=== PATIENT | male | born 1965 | race Hispanic/Latino ===

== ENCOUNTER 2016-09-24 09:07 | Emergency (ER) | payer SELFPAY ==
[~2016-09-24] VITALS: Ht 170.2 cm; Wt 66.6 kg
[~2016-09-24 09:07] MED LIST: AMLODIPINE BESYL5 MG PO; ANTIVERT25 MG PO; APRESOLINE25 MG PO; CARVEDILOL12.5 MG PO; CLONIDINE HCL0.1 MG PO; CLONIDINE HCL0.2 MG PO; GLIPIZIDE10 MG PO; GLIPIZIDE5 MG PO; IRON325 MG PO; LEVEMIR100 UNIT/2 SC; LEVOFLOXACIN500 MG PO; LISINOPRIL2.5 MG PO; LISINOPRIL20 MG PO; LOPRESSOR25 MG PO; METFORMIN HCL500 MG PO; NIFEDIPINE ER30 MG PO; NORCO 5/3251 TABLET PO; NORVASC10 MG PO; NORVASC5 MG PO; TYLENOL WITH C1 EACH PO
[2016-09-24 10:19] LABS: BASOPHIL COUNT 0.1 K/uL (0-0.1); EOSINOPHIL (%) 7.4 % (0-5); EOSINOPHIL COUNT 0.5 K/uL (0-0.3); HEMATOCRIT 33.8 % (38.0-50.0); IMMATURE GRANULOCYTE (%) 0.3 % (0.0-0.7); IMMATURE GRANULOCYTE COUNT 0.2 K/uL; LYMPHOCYTE COUNT 2.1 K/uL (1.0-2.8); MCH 31.1 PG (29.0-34.0); MCHC 36.4 G/DL (30.0-36.0); MEAN PLAT.VOLUME 8.8 uM^3 (9.0-12.4); MONOCYTE (%) 7.2 % (3-12); MONOCYTE COUNT 0.5 K/uL (0-0.8); NEUTROPHIL (%) 52.8 % (45-76); NEUTROPHIL COUNT 3.6 K/uL (1.8-6.4); PLATELET COUNT 249 K/uL (156-360); RBC DIS.WIDTH-CV 13.9 % (11.8-14.6); RBC DIS.WIDTH-SD 42.4 % (39-53); WHITE BLOOD COUNT 6.8 K/uL (4.1-10.2)
[2016-09-24 10:20] LABS: MCV 85.4 FL (86-99); RED BLOOD COUNT 3.96 M/uL (4.00-5.50)
[2016-09-24 10:31] LABS: CHLORIDE 111 mEq/L (99-109); POTASSIUM 4.4 mEq/L (3.7-5.4); SODIUM 138 mEq/L (136-147)
[2016-09-24 10:33] LABS: GLUCOSE 229 mg/dL (70-99)
[2016-09-24 10:35] LABS: ANION GAP 8 MEQ/L (2-14); TOTAL BILIRUBIN 0.2 mg/dL (0.0-1.0)
[2016-09-24 10:37] LABS: ALKALINE PHOSPHATASE 141 IU/L (3-129); GFR ESTIMATE (CALCULATED) 27 mL/min/
[2016-09-24 10:38] LABS: UREA NITROGEN (BUN) 39 mg/dL (9-23)
[2016-09-24 12:42] LABS: ADD MIUA? YES; BILIRUBIN NEGATIVE; BLOOD SMALL; COLOR YELLOW ((YELLOW)); GLUCOSE (STRIP) 250; KETONES NEGATIVE; LEUKOCYTES NEGATIVE; NITRITE NEGATIVE; PROTEIN (STRIP) >=300; SPECIFIC GRAVITY 1.018 (1.000-1.030); UROBILINOGEN 0.2 MG/DL (0.2-1.0)
[2016-09-24 12:56] LABS: EPITHELIAL CELLS 1+; MUCUS RARE
[2016-09-24 12:57] LABS: BACTERIA NONE SEEN; CASTS NONE SEEN /LPF; CRYSTALS NONE SEEN; RED BLOOD CELLS 0-5 /HPF (0-5); UCUL ADDED? NO; WHITE BLOOD CELLS NONE SEEN /HPF (0-5)
[2016-09-24] MEDS ORDERED: FIORICET,ESG1 TABLET PO (12:59)
[2016-09-24 14:01] VITALS: BP 160/74
== END 2016-09-24 14:02 | disposition home or self-care (01) ==
LOC: EME 09:07
PROVIDERS: Emergency Medicine
DX: G44.209 Tension-type headache, unspecified, not intractable (principal); N28.9 Disorder of kidney and ureter, unspecified; E11.65 Type 2 diabetes mellitus with hyperglycemia; I10 Essential (primary) hypertension; E03.9 Hypothyroidism, unspecified; J45.909 Unspecified asthma, uncomplicated; Z79.4 Long term (current) use of insulin
CPT/HCPCS: 70450; 72125; 80053; 81003; 85025; 99281; 99285; J7030

== ENCOUNTER 2016-12-07 16:12 | Emergency (ER) | payer OTHER ==
[~2016-12-07] VITALS: Ht 162.6 cm; Wt 75.0 kg
[~2016-12-07 16:12] MED LIST changes: +FIORICET,ESG1 TABLET PO
[2016-12-07 17:33] LABS: HEMATOCRIT 21.7 % (38.0-50.0); MCH 31.3 PG (29.0-34.0); MCHC 34.6 G/DL (30.0-36.0); MCV 90.4 FL (86-99); MEAN PLAT.VOLUME 8.3 uM^3 (9.0-12.4); PLATELET COUNT 234 K/uL (156-360); RBC DIS.WIDTH-CV 14.6 % (11.8-14.6); RBC DIS.WIDTH-SD 47.8 % (39-53); WHITE BLOOD COUNT 12.9 K/uL (4.1-10.2)
[2016-12-07 17:46] LABS: CHLORIDE 109 mEq/L (99-109); PROTHROMBIN TIME 10.4 (9.2-11.2); PTT 25.1 (25-32); SODIUM 137 mEq/L (136-147)
[2016-12-07 17:48] LABS: GLUCOSE 154 mg/dL (70-99)
[2016-12-07 17:50] LABS: ANION GAP 10 MEQ/L (2-14); TOTAL BILIRUBIN 0.2 mg/dL (0.0-1.0)
[2016-12-07 17:52] LABS: ALKALINE PHOSPHATASE 126 IU/L (3-129); GFR ESTIMATE (CALCULATED) 17 mL/min/
[2016-12-07 17:53] LABS: UREA NITROGEN (BUN) 47 mg/dL (9-23)
[2016-12-07 21:08] VITALS: BP 154/69
== END 2016-12-07 21:20 | disposition short-term general hospital (02) ==
LOC: EME 16:12
PROVIDERS: Physician Assistant
PROC: 2W3MX1Z Immobilization of Left Lower Extremity using Splint (ICD-10-PCS; principal; 2016-12-07)
DX: S82.102A Unspecified fracture of upper end of left tibia, initial encounter for closed fracture (principal); S72.052A Unspecified fracture of head of left femur, initial encounter for closed fracture; W11.XXXA Fall on and from ladder, initial encounter; D64.9 Anemia, unspecified; N28.9 Disorder of kidney and ureter, unspecified; E11.9 Type 2 diabetes mellitus without complications; J45.909 Unspecified asthma, uncomplicated; I10 Essential (primary) hypertension; Z79.84 Long term (current) use of oral hypoglycemic drugs
CPT/HCPCS: 71010; 72070; 72100; 73560; 73590; 73650; 80053; 85027; 85610; 85730; 86850; 86900; 86901; 93005; 99281; 99285; J2270; J2405; J3010; J7030

== ENCOUNTER 2016-12-22 14:58 | Inpatient (IN) | payer OTHER ==
[~2016-12-22] VITALS: Ht 170.2 cm; Wt 71.4 kg
[2016-12-22 15:48] VITALS: BP 155/70
[2016-12-22 16:18] LABS: POINT-OF-CARE METER ID UU13113720
[2016-12-22] MEDS ORDERED: GLUCOTROL10 MG PO (16:19)
[2016-12-22] MEDS ORDERED: ACETAMINOPHEN325 M1 PO (16:25)
[2016-12-22] MEDS ORDERED: ROCALTROL0.25 MCG PO (16:26)
[2016-12-22] MEDS ORDERED: CALCIUM CARBON650 MG PO (16:28)
[2016-12-22] MEDS ORDERED: COLACE100 MG PO (16:31)
[2016-12-22] MEDS ORDERED: GLUCAGON HCL1 MG IM (16:32)
[2016-12-22] MEDS ORDERED: GLUCOSE4 GM PO (16:34)
[2016-12-22] MEDS ORDERED: HEPARIN SO5000 UNIT3 SC (16:35)
[2016-12-22] MEDS ORDERED: APRESOLINE20 MG/ML IM (16:36)
[2016-12-22] MEDS ORDERED: NOVOLOG PE100 UNITS/ SC ×2 (16:37→16:41)
[2016-12-22] MEDS ORDERED: LEVO-T175 MCG PO (16:41)
[2016-12-22] MEDS ORDERED: OXYCODONE HCL10 MG PO (16:44)
[2016-12-22] MEDS ORDERED: ROXICODONE15 MG PO (16:44)
[2016-12-22] MEDS ORDERED: MIRALAX17 GM PO (16:45)
[2016-12-22] MEDS ORDERED: SENNA8.6 MG PO (16:46)
[2016-12-22] MEDS ORDERED: NABI650T PO (16:47)
[2016-12-22] MEDS ORDERED: FLOMAX0.4 MG PO (16:48)
[2016-12-22] MEDS ORDERED: ERGOCALCIF50000 UNIT PO (16:49)
[2016-12-22 21:33] LABS: POINT-OF-CARE METER ID UU14174215
[2016-12-22 23:46] VITALS: BP 182/84
[2016-12-23 00:40] VITALS: BP 181/81
[2016-12-23 05:41] LABS: ALKALINE PHOSPHATASE 280 IU/L (3-129); ANION GAP 6 MEQ/L (2-14); CHLORIDE 100 MEQ/L (99-109); GFR ESTIMATE (CALCULATED) 20 mL/min/; GLUCOSE 123 mg/dL (70-99); SAMPLE HEMOLYSIS CHECK 0; SAMPLE ICTERIC CHECK 0; SAMPLE LIPEMIA CHECK 0; SODIUM 134 MEQ/L (136-147); TOTAL BILIRUBIN 0.3 MG/DL (0.0-1.0); UREA NITROGEN (BUN) 43 mg/dL (9-23)
[2016-12-23 05:44] LABS: HEMATOCRIT 23.9 % (38.0-50.0); MCH 30.3 PG (29.0-34.0); MCHC 33.1 G/DL (30.0-36.0); MCV 91.6 FL (86-99); RBC DIS.WIDTH-CV 12.7 % (11.8-14.6); RBC DIS.WIDTH-SD 42.4 % (39-53); RED BLOOD COUNT 2.61 M/uL (4.00-5.50)
[2016-12-23 05:48] LABS: PLATELET COUNT 565 K/uL (156-360)
[2016-12-23 06:38] VITALS: BP 170/76
[2016-12-23 07:04] LABS: POINT-OF-CARE METER ID UU14174215; POINT-OF-CARE USER ID ENVGAF
[2016-12-23 10:46] LABS: POINT-OF-CARE METER ID UU14174215
[2016-12-23 11:55] LABS: POINT-OF-CARE METER ID UU14174215; POINT-OF-CARE USER ID ENVGAF
[2016-12-23 13:41] LABS: ADD MIUA? YES; BILIRUBIN NEGATIVE; BLOOD NEGATIVE; COLOR YELLOW ((YELLOW)); GLUCOSE (STRIP) 150; KETONES NEGATIVE; LEUKOCYTES NEGATIVE; NITRITE NEGATIVE; PROTEIN (STRIP) 100; UROBILINOGEN 0.2 MG/DL (0.2-1.0)
[2016-12-23 14:08] LABS: BACTERIA NONE SEEN /HPF; EPITHELIAL CELLS NONE SEEN /HPF; MUCUS RARE /LPF; RED BLOOD CELLS 0-5 /HPF (0-5); WHITE BLOOD CELLS NONE SEEN /HPF (0-5)
[2016-12-23 14:16] LABS: UR CREATININE CONCENTRATION 49.6 MG/DL
[2016-12-23 15:10] LABS: ANION GAP 7 MEQ/L (2-14); CHLORIDE 100 MEQ/L (99-109); GFR ESTIMATE (CALCULATED) 22 mL/min/; GLUCOSE 117 mg/dL (70-99); SAMPLE HEMOLYSIS CHECK 0; SAMPLE ICTERIC CHECK 0; SAMPLE LIPEMIA CHECK 0; SODIUM 134 MEQ/L (136-147); UREA NITROGEN (BUN) 40 mg/dL (9-23)
[2016-12-23 15:37] VITALS: BP 167/71
[2016-12-23 16:20] LABS: POINT-OF-CARE METER ID UU13113720
[2016-12-23 21:35] LABS: POINT-OF-CARE METER ID UU13113720
[2016-12-24 05:56] LABS: BASOPHIL COUNT 0.1 K/uL (0-0.1); EOSINOPHIL COUNT 1.2 K/uL (0-0.3); HEMATOCRIT 24.4 % (38.0-50.0); IMMATURE GRANULOCYTE (%) 1.4 % (0.0-0.7); IMMATURE GRANULOCYTE COUNT 0.2 K/uL; LYMPHOCYTE COUNT 2.6 K/uL (1.0-2.8); MCH 30.1 PG (29.0-34.0); MCHC 32.8 G/DL (30.0-36.0); MCV 91.7 FL (86-99); MEAN PLAT.VOLUME 9.1 uM^3 (9.0-12.4); MONOCYTE (%) 9.4 % (3-12); MONOCYTE COUNT 1.2 K/uL (0-0.8); NEUTROPHIL (%) 57.6 % (45-76); PLATELET COUNT 605 K/uL (156-360); RBC DIS.WIDTH-CV 12.8 % (11.8-14.6); RBC DIS.WIDTH-SD 43.2 % (39-53); RED BLOOD COUNT 2.66 M/uL (4.00-5.50); WHITE BLOOD COUNT 12.2 K/uL (4.1-10.2)
[2016-12-24 06:20] LABS: ANION GAP 8 MEQ/L (2-14); CHLORIDE 102 MEQ/L (99-109); GFR ESTIMATE (CALCULATED) 22 mL/min/; GLUCOSE 115 mg/dL (70-99); MAGNESIUM 1.9 mg/dl (1.3-2.7); POTASSIUM 5.2 MEQ/L (3.7-5.4); SAMPLE HEMOLYSIS CHECK 0; SAMPLE ICTERIC CHECK 0; SAMPLE LIPEMIA CHECK 0; SODIUM 135 MEQ/L (136-147); UREA NITROGEN (BUN) 42 mg/dL (9-23); URIC ACID 6.5 mg/dL (3.1-9.2)
[2016-12-24 06:22] VITALS: BP 135/65
[2016-12-24 06:36] LABS: POINT-OF-CARE METER ID UU14174215; POINT-OF-CARE USER ID ENVGAF
[2016-12-24 11:51] LABS: POINT-OF-CARE METER ID UU14174215
[2016-12-24 15:14] VITALS: BP 134/64
[2016-12-24 16:09] LABS: POINT-OF-CARE METER ID UU13113720
[2016-12-24 21:28] LABS: POINT-OF-CARE METER ID UU14174215
[2016-12-25 05:22] VITALS: BP 137/64
[2016-12-25 08:08] LABS: POINT-OF-CARE METER ID UU14174215; POINT-OF-CARE USER ID AHSSSJB31
[2016-12-25 11:38] LABS: POINT-OF-CARE METER ID UU13113720
[2016-12-25 15:06] VITALS: BP 158/73
[2016-12-25 16:08] LABS: HEMATOCRIT 24.2 % (38.0-50.0); MCHC 33.1 G/DL (30.0-36.0); MCV 90.6 FL (86-99); MEAN PLAT.VOLUME 8.4 uM^3 (9.0-12.4); PLATELET COUNT 569 K/uL (156-360); RBC DIS.WIDTH-CV 12.7 % (11.8-14.6); RBC DIS.WIDTH-SD 42.3 % (39-53); RED BLOOD COUNT 2.67 M/uL (4.00-5.50); WHITE BLOOD COUNT 10.8 K/uL (4.1-10.2)
[2016-12-25 16:28] LABS: ANION GAP 7 MEQ/L (2-14); CHLORIDE 103 MEQ/L (99-109); GFR ESTIMATE (CALCULATED) 21 mL/min/; POTASSIUM 5.1 MEQ/L (3.7-5.4); SAMPLE HEMOLYSIS CHECK 0; SAMPLE ICTERIC CHECK 0; SAMPLE LIPEMIA CHECK 0; SODIUM 134 MEQ/L (136-147); UREA NITROGEN (BUN) 39 mg/dL (9-23)
[2016-12-25 16:28] LABS: POINT-OF-CARE METER ID UU13113720
[2016-12-25 16:29] LABS: GLUCOSE 80 mg/dL (70-99)
[2016-12-25 20:41] LABS: ADD MIUA? YES; BILIRUBIN NEGATIVE; BLOOD NEGATIVE; COLOR YELLOW ((YELLOW)); GLUCOSE (STRIP) 50; KETONES NEGATIVE; LEUKOCYTES NEGATIVE; NITRITE NEGATIVE; PROTEIN (STRIP) 100; SPECIFIC GRAVITY 1.011 (1.000-1.030); UROBILINOGEN 0.2 MG/DL (0.2-1.0)
[2016-12-25 20:55] LABS: BACTERIA RARE /HPF; EPITHELIAL CELLS NONE SEEN /HPF; MUCUS TRACE /LPF; RED BLOOD CELLS 0-5 /HPF (0-5); WHITE BLOOD CELLS 0-5 /HPF (0-5)
[2016-12-25 20:59] LABS: POINT-OF-CARE METER ID UU14174215; POINT-OF-CARE USER ID 610211320
[2016-12-26 02:23] LABS: POINT-OF-CARE METER ID UU13113720
[2016-12-26 05:11] VITALS: BP 124/60
[2016-12-26 05:55] LABS: ANION GAP 7 MEQ/L (2-14); CHLORIDE 103 MEQ/L (99-109); GFR ESTIMATE (CALCULATED) 20 mL/min/; POTASSIUM 5.4 MEQ/L (3.7-5.4); SAMPLE HEMOLYSIS CHECK 0; SAMPLE ICTERIC CHECK 0; SAMPLE LIPEMIA CHECK 0; SODIUM 133 MEQ/L (136-147); UREA NITROGEN (BUN) 43 mg/dL (9-23)
[2016-12-26 05:57] LABS: GLUCOSE 129 mg/dL (70-99)
[2016-12-26 07:24] LABS: POINT-OF-CARE METER ID UU14174215; POINT-OF-CARE USER ID AHSSSJB31
[2016-12-26 12:16] LABS: POINT-OF-CARE METER ID UU13113720; POINT-OF-CARE USER ID AHSSSJB31
[2016-12-26 15:52] VITALS: BP 140/67
[2016-12-26 16:29] LABS: POINT-OF-CARE METER ID UU13113720
[2016-12-26 21:08] LABS: POINT-OF-CARE METER ID UU13113720
[2016-12-27 05:55] VITALS: BP 153/67
[2016-12-27 06:53] LABS: POINT-OF-CARE METER ID UU14174215; POINT-OF-CARE USER ID ENVGAF
[2016-12-27 11:05] LABS: POINT-OF-CARE METER ID UU13113720
[2016-12-27 17:07] VITALS: BP 166/73
[2016-12-27 17:17] LABS: POINT-OF-CARE METER ID UU13113720
[2016-12-27 21:12] LABS: POINT-OF-CARE METER ID UU13113720
[2016-12-28 04:56] LABS: CHLORIDE 107 mEq/L (99-109); POTASSIUM 5.1 mEq/L (3.7-5.4); SODIUM 136 mEq/L (136-147)
[2016-12-28 04:59] LABS: ANION GAP 7 MEQ/L (2-14)
[2016-12-28 05:03] LABS: GFR ESTIMATE (CALCULATED) 21 mL/min/; UREA NITROGEN (BUN) 41 mg/dL (9-23)
[2016-12-28 05:07] LABS: GLUCOSE 60 mg/dL (70-99)
[2016-12-28 06:52] VITALS: BP 173/79
[2016-12-28 07:11] LABS: POINT-OF-CARE METER ID UU13113720
[2016-12-28 11:24] LABS: POINT-OF-CARE METER ID UU13113720
[2016-12-28 11:37] VITALS: BP 158/64
[2016-12-28 15:05] VITALS: BP 123/58
[2016-12-28 16:26] LABS: POINT-OF-CARE METER ID UU13113720
[2016-12-28 21:18] LABS: POINT-OF-CARE METER ID UU13113720; POINT-OF-CARE USER ID 610211320
[2016-12-29 05:44] VITALS: BP 166/80
[2016-12-29 06:11] LABS: ANION GAP 8 MEQ/L (2-14); CHLORIDE 104 MEQ/L (99-109); GFR ESTIMATE (CALCULATED) 21 mL/min/; POTASSIUM 5.4 MEQ/L (3.7-5.4); SAMPLE HEMOLYSIS CHECK 0; SAMPLE ICTERIC CHECK 0; SAMPLE LIPEMIA CHECK 0; SODIUM 135 MEQ/L (136-147); UREA NITROGEN (BUN) 40 mg/dL (9-23)
[2016-12-29 06:12] LABS: GLUCOSE 80 mg/dL (70-99)
[2016-12-29 07:28] LABS: POINT-OF-CARE METER ID UU13113720
[2016-12-29 11:31] LABS: POINT-OF-CARE METER ID UU14174215; POINT-OF-CARE USER ID ENVGAF
[2016-12-29 15:03] VITALS: BP 131/62
[2016-12-29 16:50] LABS: POINT-OF-CARE METER ID UU13113720
[2016-12-29 21:32] LABS: POINT-OF-CARE METER ID UU13113720
[2016-12-30 05:25] LABS: IRON 46 MCG/DL (35-150)
[2016-12-30 05:43] VITALS: BP 128/59
[2016-12-30 08:17] LABS: POINT-OF-CARE METER ID UU13113720; POINT-OF-CARE USER ID AHSSSJB31
[2016-12-30 12:21] LABS: POINT-OF-CARE METER ID UU14174215; POINT-OF-CARE USER ID AHSSSJB31
[2016-12-30 15:57] VITALS: BP 137/65
[2016-12-30 16:15] LABS: POINT-OF-CARE METER ID UU13113720; POINT-OF-CARE USER ID AHSSSJB31
[2016-12-30 21:20] LABS: POINT-OF-CARE METER ID UU14174215
[2016-12-31 00:42] VITALS: BP 160/70
[2016-12-31 00:45] LABS: POINT-OF-CARE METER ID UU14174215
[2016-12-31 01:26] LABS: POINT-OF-CARE METER ID UU14174215
[2016-12-31 05:32] VITALS: BP 167/76
[2016-12-31 07:05] LABS: POINT-OF-CARE METER ID UU14174215
[2016-12-31 11:44] LABS: POINT-OF-CARE METER ID UU13113720
[2016-12-31 15:04] VITALS: BP 141/68
[2016-12-31 16:26] LABS: POINT-OF-CARE METER ID UU14174215
[2016-12-31 21:00] LABS: POINT-OF-CARE METER ID UU13113720
[2017-01-01 05:15] VITALS: BP 157/72
[2017-01-01 07:27] LABS: POINT-OF-CARE METER ID UU14174215
[2017-01-01 07:51] LABS: POINT-OF-CARE METER ID UU14174215
[2017-01-01 11:39] LABS: POINT-OF-CARE METER ID UU14174215
[2017-01-01 15:48] VITALS: BP 129/63
[2017-01-01 16:52] LABS: POINT-OF-CARE METER ID UU14174215
[2017-01-01 21:21] LABS: POINT-OF-CARE METER ID UU13113720
[2017-01-02 06:14] LABS: ANION GAP 8 MEQ/L (2-14); CHLORIDE 104 MEQ/L (99-109); GFR ESTIMATE (CALCULATED) 20 mL/min/; GLUCOSE 66 mg/dL (70-99); POTASSIUM 4.7 MEQ/L (3.7-5.4); SAMPLE HEMOLYSIS CHECK 0; SAMPLE ICTERIC CHECK 0; SAMPLE LIPEMIA CHECK 0; SODIUM 135 MEQ/L (136-147); UREA NITROGEN (BUN) 54 mg/dL (9-23)
[2017-01-02 06:18] VITALS: BP 135/64
[2017-01-02 06:51] LABS: POINT-OF-CARE METER ID UU13113720; POINT-OF-CARE USER ID ENVGAF
[2017-01-02 11:58] LABS: POINT-OF-CARE METER ID UU13113720; POINT-OF-CARE USER ID AHSSSJB31
[2017-01-02 15:08] VITALS: BP 143/67
[2017-01-02 16:18] LABS: POINT-OF-CARE METER ID UU14174215
[2017-01-02 21:08] LABS: POINT-OF-CARE METER ID UU14174215
[2017-01-03 05:04] VITALS: BP 160/60
[2017-01-03 06:50] LABS: POINT-OF-CARE METER ID UU13113720; POINT-OF-CARE USER ID ENVGAF
[2017-01-03 07:47] LABS: POINT-OF-CARE METER ID UU13113720; POINT-OF-CARE USER ID ENVGAF
[2017-01-03 17:03] LABS: POINT-OF-CARE METER ID UU13113720
[2017-01-03 17:06] VITALS: BP 158/74
[2017-01-03 21:08] LABS: POINT-OF-CARE METER ID UU13113720
[2017-01-04 04:27] VITALS: BP 116/59
[2017-01-04 07:18] VITALS: BP 136/65
[2017-01-04 07:26] LABS: POINT-OF-CARE METER ID UU13113720
[2017-01-04 10:41] LABS: HEMATOCRIT 28.1 % (38.0-50.0); MCH 30.7 PG (29.0-34.0); MCHC 33.5 G/DL (30.0-36.0); MCV 91.8 FL (86-99); MEAN PLAT.VOLUME 8.7 uM^3 (9.0-12.4); NRBC (%) 0.2 /100 WBC (0-0); PLATELET COUNT 512 K/uL (156-360); RBC DIS.WIDTH-CV 14.2 % (11.8-14.6); RBC DIS.WIDTH-SD 46.4 % (39-53); RED BLOOD COUNT 3.06 M/uL (4.00-5.50); WHITE BLOOD COUNT 10.8 K/uL (4.1-10.2)
[2017-01-04 11:07] LABS: ALKALINE PHOSPHATASE 167 IU/L (3-129); ANION GAP 9 MEQ/L (2-14); CHLORIDE 101 MEQ/L (99-109); GFR ESTIMATE (CALCULATED) 20 mL/min/; GLUCOSE 222 mg/dL (70-99); POTASSIUM 5.2 MEQ/L (3.7-5.4); SAMPLE HEMOLYSIS CHECK 0; SAMPLE ICTERIC CHECK 0; SAMPLE LIPEMIA CHECK 0; SODIUM 132 MEQ/L (136-147); TOTAL BILIRUBIN 0.3 MG/DL (0.0-1.0); UREA NITROGEN (BUN) 58 mg/dL (9-23)
[2017-01-04 11:32] LABS: POINT-OF-CARE METER ID UU13113720
[2017-01-04 15:45] VITALS: BP 138/65
[2017-01-04 16:35] LABS: POINT-OF-CARE METER ID UU13113720
[2017-01-04 21:41] LABS: POINT-OF-CARE METER ID UU13113720; POINT-OF-CARE USER ID 610211320
[2017-01-05 05:37] VITALS: BP 114/54
[2017-01-05 07:07] LABS: POINT-OF-CARE METER ID UU14174215
[2017-01-05 07:37] VITALS: BP 116/56
[2017-01-05 11:06] LABS: POINT-OF-CARE METER ID UU13113720
[2017-01-05] MEDS ORDERED: LOVENOX30 MG/0.3 SC (12:39)
[2017-01-05] MEDS ORDERED: GLUCOTROL10 MG PO (12:39)
[2017-01-05] MEDS ORDERED: FLOMAX0.4 MG PO (12:39)
[2017-01-05] MEDS ORDERED: CARVEDILOL12.5 MG PO (12:39)
[2017-01-05] MEDS ORDERED: Procardia XL,Adalat PO (12:39)
[2017-01-05] MEDS ORDERED: MIRALAX17 GM PO (12:39)
[2017-01-05] MEDS ORDERED: SENNA8.6 MG PO (12:39)
[2017-01-05] MEDS ORDERED: ERGOCALCIF50000 UNIT PO (12:39)
[2017-01-05] MEDS ORDERED: LEVO-T175 MCG PO (12:39)
[2017-01-05] MEDS ORDERED: COLACE100 MG PO (12:39)
[2017-01-05] MEDS ORDERED: ACETAMINOPHEN-1 EAC1 PO (12:39)
[2017-01-05] MEDS ORDERED: ROCALTROL0.25 MCG PO (12:39)
[2017-01-05] MEDS ORDERED: OYSTER SHELL 51 EACH PO (12:39)
[2017-01-05] MEDS ORDERED: SSD25GM TP (12:39)
[2017-01-05 16:05] VITALS: BP 126/60
[2017-01-05 16:26] LABS: POINT-OF-CARE METER ID UU14174215
== END 2017-01-05 18:20 | disposition home health service (06) | DRG 560 ==
LOC: 3WEST 14:58
PROVIDERS: Internal Medicine Nephrology; Physical Medicine & Rehabilitation Pain Medicine
DX: S82.102D Unspecified fracture of upper end of left tibia, subsequent encounter for closed fracture with routine healing (principal); I12.9 Hypertensive chronic kidney disease with stage 1 through stage 4 chronic kidney disease, or unspecified chronic kidney disease; E11.22 Type 2 diabetes mellitus with diabetic chronic kidney disease; N18.4 Chronic kidney disease, stage 4 (severe); Z79.4 Long term (current) use of insulin; E03.9 Hypothyroidism, unspecified; E87.1 Hypo-osmolality and hyponatremia; E87.6 Hypokalemia; G56.21 Lesion of ulnar nerve, right upper limb; G89.18 Other acute postprocedural pain; R50.9 Fever, unspecified; Z98.890 Other specified postprocedural states; S82.142D Displaced bicondylar fracture of left tibia, subsequent encounter for closed fracture with routine healing; W11.XXXD Fall on and from ladder, subsequent encounter; T81.4XXA Infection following a procedure, initial encounter; L03.115 Cellulitis of right lower limb; Z91.19 Patient's noncompliance with other medical treatment and regimen; E11.65 Type 2 diabetes mellitus with hyperglycemia; E87.5 Hyperkalemia; D63.1 Anemia in chronic kidney disease; D62 Acute posthemorrhagic anemia; N17.9 Acute kidney failure, unspecified
CPT/HCPCS: 71010; 80048; 80048 91; 80053; 81003; 82570; 82948; 83540; 83735; 84100; 84156; 84466; 84550; 85025; 85027; 87077; 87086; 87186; 97110 GO; 97530 GP; J0690; J0881; J1644; J1650; J1815; J7050

== ENCOUNTER 2017-08-08 19:58 | Observation (INO) | payer SELFPAY ==
[~2017-08-08] VITALS: Ht 167.6 cm; Wt 63.9 kg
[~2017-08-08 19:58] MED LIST changes: +ACETAMINOPHEN-1 EAC1 PO; +ACETAMINOPHEN325 M1 PO; +APRESOLINE20 MG/ML IM; +CALCIUM CARBON650 MG PO; +COLACE100 MG PO; +ERGOCALCIF50000 UNIT PO; +FIORICET 50-301 EAC1 PO; +FLOMAX0.4 MG PO; +GLUCAGON HCL1 MG IM; +GLUCOSE4 GM PO; +GLUCOTROL10 MG PO; +HEPARIN SO5000 UNIT3 SC; +LABETALOL HCL100 MG PO; +LABETALOL HCL200 MG PO; +LEVO-T175 MCG PO; +LEVOTHYROXINE175 MCG PO; +LOVENOX30 MG/0.3 SC; +MIRALAX17 GM PO; +NABI650T PO; +NOVOLOG PE100 UNITS/ SC; +OXYCODONE HCL10 MG PO; +OYSTER SHELL 51 EACH PO; +PROCARDIA XL90 MG PO; +Procardia XL,Adalat PO; +ROCALTROL0.25 MCG PO; +ROXICODONE15 MG PO; +SENNA8.6 MG PO; +SSD25GM TP; +VALSARTAN160 MG PO; +ZANTAC300 MG PO
[2017-08-08 21:40] LABS: HEMATOCRIT 26.4 % (38.0-50.0); MCH 30.8 PG (29.0-34.0); MCHC 34.8 G/DL (30.0-36.0); MCV 88.3 FL (86-99); MEAN PLAT.VOLUME 8.4 uM^3 (9.0-12.4); PLATELET COUNT 216 K/uL (156-360); RBC DIS.WIDTH-CV 13.6 % (11.8-14.6); RBC DIS.WIDTH-SD 44.3 % (39-53); RED BLOOD COUNT 2.99 M/uL (4.00-5.50); WHITE BLOOD COUNT 8.1 K/uL (4.1-10.2)
[2017-08-08 21:51] LABS: CHLORIDE 95 mEq/L (99-109); POTASSIUM 3.6 mEq/L (3.7-5.4); SODIUM 136 mEq/L (136-147)
[2017-08-08 21:53] LABS: GLUCOSE 289 mg/dL (70-99)
[2017-08-08 21:55] LABS: ANION GAP 9 MEQ/L (2-14); TOTAL BILIRUBIN 0.3 mg/dL (0.0-1.0)
[2017-08-08 21:57] LABS: ALKALINE PHOSPHATASE 148 IU/L (3-129); GFR ESTIMATE (CALCULATED) 22 mL/min/
[2017-08-08 21:57] LABS: INTER. NORMALIZED RATIO 0.9; PROTHROMBIN TIME 10.6 SEC (10.2-12.9)
[2017-08-08 21:58] LABS: UREA NITROGEN (BUN) 17 mg/dL (9-23)
[2017-08-08 21:59] LABS: PTT 28.6 SEC (25-37)
[2017-08-08 22:00] LABS: LIPASE 43 U/L (1.0-51.0)
[2017-08-08 22:06] LABS: TROP-I INTERPRETATION NEGATIVE; TROPONIN-I 0.02 ng/mL (0.0-0.30)
[2017-08-08] MEDS ORDERED: LABETALOL HCL100 MG PO (22:34)
[2017-08-08] MEDS ORDERED: DIOVAN320 MG PO (22:36)
[2017-08-08] MEDS ORDERED: GLIPIZIDE10 MG PO (22:36)
[2017-08-09 01:31] VITALS: BP 152/70
[2017-08-09 01:59] LABS: POINT-OF-CARE METER ID UU13113700
[2017-08-09 03:46] LABS: TROP-I INTERPRETATION NEGATIVE; TROPONIN-I 0.02 ng/mL (0.0-0.30)
[2017-08-09 04:01] LABS: HDL CHOLESTEROL 44 MG/DL (Desirable>=40); LDL CHOLESTEROL 102 mg/dL (Desirable<100); NON-HDL CHOLESTEROL 125 mg/dL (Desirable<160); TOTAL CHOLESTEROL 169 mg/dL (Desirable<200); TRIGLYCERIDES 115 MG/DL (Normal: <150)
[2017-08-09 05:14] LABS: ADD MIUA? YES; BILIRUBIN NEGATIVE; BLOOD NEGATIVE; COLOR YELLOW ((YELLOW)); GLUCOSE (STRIP) >=500; KETONES NEGATIVE; LEUKOCYTES NEGATIVE; NITRITE NEGATIVE; PROTEIN (STRIP) >=500; UROBILINOGEN 0.2 MG/DL (0.2-1.0)
[2017-08-09 05:18] LABS: BACTERIA RARE /HPF; EPITHELIAL CELLS NONE SEEN /HPF; HYALINE CASTS 0-5 /LPF; MUCUS NONE SEEN /LPF; RED BLOOD CELLS 0-5 /HPF (0-5); UCUL ADDED? NO; WHITE BLOOD CELLS 0-5 /HPF (0-5)
[2017-08-09 08:38] VITALS: BP 188/82
[2017-08-09 08:41] LABS: POINT-OF-CARE METER ID UU13113831
[2017-08-09 10:37] LABS: TROP-I INTERPRETATION NEGATIVE; TROPONIN-I 0.03 ng/mL (0.0-0.30)
[2017-08-09 11:52] VITALS: BP 204/88
[2017-08-09 12:51] LABS: POINT-OF-CARE METER ID UU13113831
[2017-08-09 15:57] VITALS: BP 186/84
[2017-08-09 16:24] LABS: POINT-OF-CARE METER ID UU13113700
[2017-08-09 19:02] VITALS: BP 181/73
[2017-08-09 21:31] LABS: POINT-OF-CARE METER ID UU13113700
[2017-08-09 23:22] VITALS: BP 117/56
[2017-08-10 00:37] LABS: POINT-OF-CARE METER ID UU14162513
[2017-08-10 03:26] VITALS: BP 125/64
[2017-08-10 04:35] LABS: HEMATOCRIT 25.1 % (38.0-50.0); MCHC 34.7 G/DL (30.0-36.0); MCV 89.3 FL (86-99); MEAN PLAT.VOLUME 8.9 uM^3 (9.0-12.4); PLATELET COUNT 214 K/uL (156-360); RBC DIS.WIDTH-CV 13.7 % (11.8-14.6); RBC DIS.WIDTH-SD 44.7 % (39-53); RED BLOOD COUNT 2.81 M/uL (4.00-5.50)
[2017-08-10 04:54] LABS: CHLORIDE 98 mEq/L (99-109); POTASSIUM 4.3 mEq/L (3.7-5.4); SODIUM 135 mEq/L (136-147)
[2017-08-10 04:55] LABS: GLUCOSE 281 mg/dL (70-99)
[2017-08-10 04:57] LABS: ANION GAP 10 MEQ/L (2-14)
[2017-08-10 04:59] LABS: GFR ESTIMATE (CALCULATED) 13 mL/min/
[2017-08-10 05:04] LABS: UREA NITROGEN (BUN) 33 mg/dL (9-23)
[2017-08-10 08:00] LABS: POINT-OF-CARE METER ID UU14162513
[2017-08-10 08:42] VITALS: BP 130/70
[2017-08-10] MEDS ORDERED: NIFEDIPINE ER30 MG PO (14:09)
[2017-08-10] MEDS ORDERED: ASPIR-LOW81 MG PO (14:10)
[2017-08-10] MEDS ORDERED: SERTRALINE HCL25 MG PO (14:11)
[2017-08-10] MEDS ORDERED: BUSPAR10 MG PO (14:11)
[2017-08-10 15:16] LABS: POINT-OF-CARE METER ID UU14162513
[2017-08-10 16:00] VITALS: BP 128/68
[2017-08-12 21:41] LABS: POINT-OF-CARE METER ID UU14162513
[2017-08-12 21:52] LABS: POINT-OF-CARE METER ID UU14162513
== END 2017-08-10 17:32 | disposition home or self-care (01) ==
LOC: EME 19:58 → EDOF 23:54 → 5WEST 23:54 → EDOF 23:54 → ENRESERV 08-09 → 5WEST 08-09 01:23 → ENPENDDIS 08-10 → 5WEST 08-10 17:32
PROVIDERS: Emergency Medicine; Internal Medicine; Physician Assistant
PROC: 5A1D70Z Performance of Urinary Filtration, Intermittent, Less than 6 Hours Per Day (ICD-10-PCS; principal; 2017-08-10)
DX: R42 Dizziness and giddiness (principal); E11.22 Type 2 diabetes mellitus with diabetic chronic kidney disease; I12.0 Hypertensive chronic kidney disease with stage 5 chronic kidney disease or end stage renal disease; N18.6 End stage renal disease; Z99.2 Dependence on renal dialysis; D63.1 Anemia in chronic kidney disease; D68.9 Coagulation defect, unspecified; R51 Headache; R68.84 Jaw pain; N25.81 Secondary hyperparathyroidism of renal origin; R53.1 Weakness; G43.909 Migraine, unspecified, not intractable, without status migrainosus; Z60.2 Problems related to living alone; Z79.82 Long term (current) use of aspirin; Z79.84 Long term (current) use of oral hypoglycemic drugs; Z83.3 Family history of diabetes mellitus
CPT/HCPCS: 70450; 71020; 78582; 80048; 80053; 80061; 81003; 82948; 83690; 84439; 84443; 84484; 85027; 85379; 85610; 85730; 93005; 93880; 99281; 99285; A9540; A9567; G0257; G0378; J0360; J1644; J1815

== ENCOUNTER 2017-08-10 18:47 | Emergency (ER) | payer SELFPAY ==
[~2017-08-10] VITALS: Ht 177.8 cm; Wt 63.1 kg
[~2017-08-10 18:47] MED LIST changes: +ASPIR-LOW81 MG PO; +BUSPAR10 MG PO; +DIOVAN320 MG PO; +SERTRALINE HCL25 MG PO
[2017-08-10 19:31] LABS: HEMATOCRIT 27.4 % (38.0-50.0); MCHC 34.3 G/DL (30.0-36.0); MCV 90.4 FL (86-99); PLATELET COUNT 259 K/uL (156-360); RED BLOOD COUNT 3.03 M/uL (4.00-5.50); WHITE BLOOD COUNT 8.9 K/uL (4.1-10.2)
[2017-08-10 19:39] LABS: CHLORIDE 101 mEq/L (99-109); POTASSIUM 4.4 mEq/L (3.7-5.4); SODIUM 138 mEq/L (136-147)
[2017-08-10 19:43] LABS: ANION GAP 7 MEQ/L (2-14); TOTAL BILIRUBIN 0.3 mg/dL (0.0-1.0)
[2017-08-10 19:45] LABS: ALKALINE PHOSPHATASE 129 IU/L (3-129)
[2017-08-10 19:46] LABS: UREA NITROGEN (BUN) 14 mg/dL (9-23)
[2017-08-10 19:48] LABS: GFR ESTIMATE (CALCULATED) 20 mL/min/; GLUCOSE 62 mg/dL (70-99)
[2017-08-10 23:43] LABS: POINT-OF-CARE METER ID UU13113747
[2017-08-11 01:39] VITALS: BP 147/75
== END 2017-08-11 01:41 | disposition home or self-care (01) ==
LOC: EME 18:47
PROVIDERS: Physician Assistant
DX: E11.649 Type 2 diabetes mellitus with hypoglycemia without coma (principal); I95.1 Orthostatic hypotension; I12.0 Hypertensive chronic kidney disease with stage 5 chronic kidney disease or end stage renal disease; N18.6 End stage renal disease; E11.22 Type 2 diabetes mellitus with diabetic chronic kidney disease; Z99.2 Dependence on renal dialysis; J45.909 Unspecified asthma, uncomplicated; D64.9 Anemia, unspecified; Z79.84 Long term (current) use of oral hypoglycemic drugs
CPT/HCPCS: 80053; 81003; 82948; 85027; 99281; 99285

== ENCOUNTER 2017-10-19 09:34 | Day surgery (SDC) | payer SELFPAY ==
[~2017-10-19] VITALS: Ht 170.2 cm; Wt 65.4 kg
[~2017-10-19 09:34] MED LIST changes: +ADALAT CC 30 MG30 MG PO; +ASPIR 8181 M1 PO; +SYNTHROID100 MCG PO; +ZOLOFT25 MG PO
[2017-10-19 10:27] LABS: HEMATOCRIT 31.6 % (38.0-50.0); HEMOGLOBIN 10.7 G/DL (12.5-16.6); MCH 31.2 PG (29.0-34.0); MCHC 33.9 G/DL (30.0-36.0); MCV 92.1 FL (86-99); PLATELET COUNT 289 K/uL (156-360); RBC DIS.WIDTH-CV 15.6 % (11.8-14.6); RBC DIS.WIDTH-SD 51.8 % (39-53); RED BLOOD COUNT 3.43 M/uL (4.00-5.50)
[2017-10-19 10:28] VITALS: BP 178/98
[2017-10-19 10:39] LABS: CHLORIDE 101 mEq/L (99-109); POTASSIUM 4.1 mEq/L (3.7-5.4); SODIUM 137 mEq/L (136-147)
[2017-10-19 10:41] LABS: GLUCOSE 131 mg/dL (70-99)
[2017-10-19 10:45] LABS: GFR ESTIMATE (CALCULATED) 11 mL/min/ (58.99-99999)
[2017-10-19 10:46] LABS: UREA NITROGEN (BUN) 34 mg/dL (9-23)
[2017-10-19] MEDS ORDERED: NORCO 5/3251 TABLET PO (14:29)
[2017-10-19 15:08] VITALS: BP 149/67
== END 2017-10-19 15:40 | disposition home or self-care (01) ==
LOC: SDC 09:34
PROVIDERS: Surgery
PROC: 031B09F Bypass Right Radial Artery to Lower Arm Vein with Autologous Venous Tissue, Open Approach (ICD-10-PCS; principal; 2017-10-19)
DX: I12.0 Hypertensive chronic kidney disease with stage 5 chronic kidney disease or end stage renal disease (principal); E11.22 Type 2 diabetes mellitus with diabetic chronic kidney disease; N18.6 End stage renal disease; Z99.2 Dependence on renal dialysis; E03.9 Hypothyroidism, unspecified; Z79.82 Long term (current) use of aspirin; Z79.84 Long term (current) use of oral hypoglycemic drugs
CPT/HCPCS: 80048; 82948; 85027; 87641; J0360; J0690; J1644; J2250; J2405; J3010

== ENCOUNTER 2018-01-10 08:46 | Emergency (ER) | payer BC ==
[~2018-01-10] VITALS: Ht 172.7 cm; Wt 68.4 kg
[2018-01-10 12:31] LABS: HEMATOCRIT 32.6 % (38.0-50.0); HEMOGLOBIN 10.8 G/DL (12.5-16.6); MCH 30.7 PG (29.0-34.0); MCHC 33.1 G/DL (30.0-36.0); MCV 92.6 FL (86-99); PLATELET COUNT 261 K/uL (156-360); RBC DIS.WIDTH-CV 14.9 % (11.8-14.6); RED BLOOD COUNT 3.52 M/uL (4.00-5.50); WHITE BLOOD COUNT 10.9 K/uL (4.1-10.2)
[2018-01-10 12:49] LABS: ALBUMIN 3.6 g/dL (3.2-4.8); CHLORIDE 101 mEq/L (99-109); POTASSIUM 5.1 mEq/L (3.7-5.4); SODIUM 139 mEq/L (136-147)
[2018-01-10 12:52] LABS: GLUCOSE 98 mg/dL (70-99); TOTAL PROTEIN 7.3 g/dL (6.4-8.3)
[2018-01-10 12:54] LABS: TOTAL BILIRUBIN 0.5 mg/dL (0.0-1.0)
[2018-01-10 12:55] LABS: ALKALINE PHOSPHATASE 98 IU/L (3-129); CREATININE 5.7 mg/dL (0.6-1.3); GFR ESTIMATE (CALCULATED) 11 mL/min/ (58.99-99999)
[2018-01-10 12:56] LABS: UREA NITROGEN (BUN) 25 mg/dL (9-23)
[2018-01-10 12:57] LABS: AST (GOT) 12 IU/L (2-34)
[2018-01-10 12:58] LABS: ALT (GPT) 10 IU/L (3-49)
[2018-01-10] MEDS ORDERED: ZITHROMAX Z-PA250 MG PO (14:41)
[2018-01-10] MEDS ORDERED: VENTOLIN HFA18 GM IH (14:46)
[2018-01-10] MEDS ORDERED: ZOFRAN ODT4 MG PO (16:00)
[2018-01-10 16:10] VITALS: BP 195/9
== END 2018-01-10 16:12 | disposition home or self-care (01) ==
LOC: EME 08:46
PROVIDERS: Nurse Practitioner Family
DX: J06.9 Acute upper respiratory infection, unspecified (principal); J45.909 Unspecified asthma, uncomplicated; E11.9 Type 2 diabetes mellitus without complications; I10 Essential (primary) hypertension; Z79.84 Long term (current) use of oral hypoglycemic drugs; Z79.82 Long term (current) use of aspirin
CPT/HCPCS: 71046; 80053; 85027; 93005; 94640; 99281; 99285

== ENCOUNTER 2018-01-16 08:12 | Outpatient (CLI) | payer BC ==
[~2018-01-16 08:12] MED LIST changes: +VENTOLIN HFA18 GM IH; +ZITHROMAX Z-PA250 MG PO; +ZOFRAN ODT4 MG PO
[2018-01-16] MEDS ORDERED: ANTIVERT25 MG PO (12:38)
== END 2018-01-16 09:25 | disposition home or self-care (01) ==
LOC: AMB 08:12
PROC: 02PYX3Z Removal of Infusion Device from Great Vessel, External Approach (ICD-10-PCS; principal; 2018-01-16)
DX: Z45.2 Encounter for adjustment and management of vascular access device (principal); N19 Unspecified kidney failure

== ENCOUNTER 2018-01-16 09:38 | Emergency (ER) | payer BC ==
[~2018-01-16] VITALS: Ht 172.7 cm; Wt 65.4 kg
[2018-01-16 10:51] LABS: BASOPHIL COUNT 0.1 K/uL (0-0.1); EOSINOPHIL (%) 22.3 % (0-5); EOSINOPHIL COUNT 1.7 K/uL (0-0.3); HEMATOCRIT 32.2 % (38.0-50.0); HEMOGLOBIN 10.7 G/DL (12.5-16.6); IMMATURE GRANULOCYTE (%) 0.3 % (0.0-0.7); LYMPHOCYTE (%) 23.5 % (15-42); LYMPHOCYTE COUNT 1.8 K/uL (1.0-2.8); MCH 30.4 PG (29.0-34.0); MCHC 33.2 G/DL (30.0-36.0); MCV 91.5 FL (86-99); MONOCYTE (%) 7.7 % (3-12); MONOCYTE COUNT 0.6 K/uL (0-0.8); NEUTROPHIL (%) 45.2 % (45-76); NEUTROPHIL COUNT 3.5 K/uL (1.8-6.4); PLATELET COUNT 301 K/uL (156-360); RBC DIS.WIDTH-CV 14.7 % (11.8-14.6); RBC DIS.WIDTH-SD 49.1 % (39-53); RED BLOOD COUNT 3.52 M/uL (4.00-5.50); WHITE BLOOD COUNT 7.7 K/uL (4.1-10.2)
[2018-01-16 11:01] LABS: CHLORIDE 98 mEq/L (99-109); POTASSIUM 5.8 mEq/L (3.7-5.4); SODIUM 138 mEq/L (136-147)
[2018-01-16 11:03] LABS: GLUCOSE 110 mg/dL (70-99)
[2018-01-16 11:07] LABS: GFR ESTIMATE (CALCULATED) 7 mL/min/ (58.99-99999)
[2018-01-16 11:08] LABS: CREATININE 8.5 mg/dL (0.6-1.3); UREA NITROGEN (BUN) 49 mg/dL (9-23)
[2018-01-16] MEDS ORDERED: ANTIVERT25 MG PO (12:38)
[2018-01-16 13:08] VITALS: BP 175/81
== END 2018-01-16 13:22 | disposition home or self-care (01) ==
LOC: EME 09:38
PROVIDERS: Emergency Medicine
DX: R42 Dizziness and giddiness (principal); E11.22 Type 2 diabetes mellitus with diabetic chronic kidney disease; I12.9 Hypertensive chronic kidney disease with stage 1 through stage 4 chronic kidney disease, or unspecified chronic kidney disease; N18.9 Chronic kidney disease, unspecified; Z99.2 Dependence on renal dialysis; J45.909 Unspecified asthma, uncomplicated
CPT/HCPCS: 70450; 80048; 82948; 85025; 93005; 99281; 99285

== ENCOUNTER 2018-02-25 12:04 | Inpatient (IN) | payer BC ==
[2018-02-25] VITALS (9 sets, daily range): BP systolic 92–186; BP diastolic 66–120
[~2018-02-25] VITALS: Ht 165.1 cm; Wt 58.2 kg
[2018-02-25 12:54] LABS: APPEARANCE CLEAR ((CLEAR)); BILIRUBIN NEGATIVE; BLOOD NEGATIVE; COLOR YELLOW ((YELLOW)); GLUCOSE (STRIP) 50; KETONES NEGATIVE; LEUKOCYTES NEGATIVE; NITRITE NEGATIVE; PROTEIN (STRIP) >=500; SPECIFIC GRAVITY 1.014 (1.000-1.030); UROBILINOGEN 0.2 MG/DL (0.2-1.0)
[2018-02-25 12:57] LABS: BASOPHIL (%) 0.3 % (0-1); EOSINOPHIL (%) 0.8 % (0-5); EOSINOPHIL COUNT 0.1 K/uL (0-0.3); HEMATOCRIT 34.6 % (38.0-50.0); HEMOGLOBIN 11.6 G/DL (12.5-16.6); IMMATURE GRANULOCYTE (%) 0.3 % (0.0-0.7); LYMPHOCYTE (%) 4.6 % (15-42); LYMPHOCYTE COUNT 0.6 K/uL (1.0-2.8); MCH 30.9 PG (29.0-34.0); MCHC 33.5 G/DL (30.0-36.0); MONOCYTE (%) 9.5 % (3-12); MONOCYTE COUNT 1.2 K/uL (0-0.8); NEUTROPHIL (%) 84.5 % (45-76); NEUTROPHIL COUNT 10.7 K/uL (1.8-6.4); PLATELET COUNT 322 K/uL (156-360); RBC DIS.WIDTH-CV 15.9 % (11.8-14.6); RBC DIS.WIDTH-SD 53.1 % (39-53); RED BLOOD COUNT 3.76 M/uL (4.00-5.50); WHITE BLOOD COUNT 12.7 K/uL (4.1-10.2)
[2018-02-25 13:02] LABS: COMMENTS - BLOOD GASES +C; DEVICE NC; O2 FLOW 6 L/MIN; SITE LR +A; TOTAL RESP RATE 28 resp/min; pH 7.42 (7.35-7.45)
[2018-02-25 13:03] LABS: METHEMOGLOBIN 0.7 % (0-1.5); PCO2 45 mm Hg (35-45); PO2 75 mm Hg (80-100)
[2018-02-25 13:04] LABS: BASE EXCESS 4.1 mEq/L (-3 to +3); BICARBONATE 29.2 mEq/L (22-26)
[2018-02-25 13:05] LABS: ALBUMIN 3.6 g/dL (3.2-4.8); CHLORIDE 100 mEq/L (99-109); POTASSIUM 5.3 mEq/L (3.7-5.4); SODIUM 138 mEq/L (136-147)
[2018-02-25 13:06] LABS: MAGNESIUM 2.7 mg/dL (1.3-2.7)
[2018-02-25 13:08] LABS: GLUCOSE 68 mg/dL (70-99); TOTAL PROTEIN 7.5 g/dL (6.4-8.3)
[2018-02-25 13:09] LABS: TOTAL BILIRUBIN 0.7 mg/dL (0.0-1.0)
[2018-02-25 13:09] LABS: BACTERIA NONE SEEN /HPF; EPITHELIAL CELLS RARE /HPF; MUCUS TRACE /LPF; UCUL ADDED? NO; WHITE BLOOD CELLS 0-5 /HPF (0-5)
[2018-02-25 13:11] LABS: ALKALINE PHOSPHATASE 85 IU/L (3-129); CREATININE 9.5 mg/dL (0.6-1.3); GFR ESTIMATE (CALCULATED) 6 mL/min/ (58.99-99999)
[2018-02-25 13:12] LABS: UREA NITROGEN (BUN) 49 mg/dL (9-23)
[2018-02-25 13:13] LABS: AST (GOT) 31 IU/L (2-34); PTT 28.5 SEC (25-37)
[2018-02-25 13:14] LABS: ALT (GPT) 16 IU/L (3-49); CREATINE KINASE 625 IU/L (1-294)
[2018-02-25 13:18] LABS: TROP-I INTERPRETATION NEGATIVE; TROPONIN-I 0.03 ng/mL (0.0-0.30)
[2018-02-25 17:11] LABS: BASOPHIL (%) 0.3 % (0-1); EOSINOPHIL (%) 0.3 % (0-5); HEMATOCRIT 32.7 % (38.0-50.0); IMMATURE GRANULOCYTE (%) 0.2 % (0.0-0.7); LYMPHOCYTE (%) 6.9 % (15-42); LYMPHOCYTE COUNT 0.8 K/uL (1.0-2.8); MCH 30.9 PG (29.0-34.0); MCHC 33.6 G/DL (30.0-36.0); MCV 91.9 FL (86-99); MONOCYTE (%) 9.3 % (3-12); NEUTROPHIL COUNT 9.1 K/uL (1.8-6.4); PLATELET COUNT 283 K/uL (156-360); RBC DIS.WIDTH-CV 15.8 % (11.8-14.6); RBC DIS.WIDTH-SD 53.1 % (39-53); RED BLOOD COUNT 3.56 M/uL (4.00-5.50); WHITE BLOOD COUNT 10.9 K/uL (4.1-10.2)
[2018-02-25 17:22] LABS: ALBUMIN 3.3 g/dL (3.2-4.8); CHLORIDE 100 mEq/L (99-109); POTASSIUM 4.6 mEq/L (3.7-5.4); SODIUM 138 mEq/L (136-147)
[2018-02-25 17:24] LABS: TOTAL PROTEIN 6.9 g/dL (6.4-8.3)
[2018-02-25 17:26] LABS: TOTAL BILIRUBIN 0.6 mg/dL (0.0-1.0)
[2018-02-25 17:28] LABS: ALKALINE PHOSPHATASE 74 IU/L (3-129); CREATININE 9.6 mg/dL (0.6-1.3); GFR ESTIMATE (CALCULATED) 6 mL/min/ (58.99-99999)
[2018-02-25 17:29] LABS: AST (GOT) 25 IU/L (2-34); GLUCOSE 108 mg/dL (70-99); UREA NITROGEN (BUN) 50 mg/dL (9-23)
[2018-02-25 17:31] LABS: ALT (GPT) 16 IU/L (3-49)
[2018-02-25 18:19] LABS: THYROTROPIN (TSH) 3.5 MIU/L (0.4-5.5)
[2018-02-25 22:05] LABS: AMPHETAMINE NEGATIVE (500 ng/mL); BARBITURATES NEGATIVE (200 ng/mL); BENZODIAZEPINES NEGATIVE (150 ng/mL); BUPRENORPHINE NEGATIVE (10 ng/mL); COCAINE NEGATIVE (150 ng/mL); METHADONE NEGATIVE (200 ng/mL); METHAMPHETAMINE NEGATIVE (500 ng/mL); OPIATES (MORPHINE) NEGATIVE (100 ng/mL); OXYCODONE NEGATIVE (100 ng/mL); PHENCYCLIDINE NEGATIVE (25 ng/mL); PROPOXYPHENE NEGATIVE (300 ng/mL); THC CANNABINOIDS NEGATIVE (50 ng/mL); TRICYCLIC ANTIDEPRESSANTS NEGATIVE (300 ng/mL)
[2018-02-25 22:48] LABS: CHLORIDE 99 MEQ/L (99-109); CREATININE 9.3 MG/DL (0.6-1.3); GFR ESTIMATE (CALCULATED) 6 mL/min/ (58.99-99999); GLUCOSE 94 mg/dL (70-99); POTASSIUM 4.7 MEQ/L (3.7-5.4); SODIUM 137 MEQ/L (136-147); UREA NITROGEN (BUN) 56 mg/dL (9-23)
[2018-02-26] VITALS (21 sets, daily range): BP systolic 128–163; BP diastolic 55–72
[2018-02-26 05:45] LABS: CHLORIDE 99 MEQ/L (99-109); CREATININE 10.3 MG/DL (0.6-1.3); GFR ESTIMATE (CALCULATED) 6 mL/min/ (58.99-99999); POTASSIUM 4.8 MEQ/L (3.7-5.4); SODIUM 139 MEQ/L (136-147); UREA NITROGEN (BUN) 57 mg/dL (9-23)
[2018-02-26 05:58] LABS: GLUCOSE 44 mg/dL (70-99)
[2018-02-26 11:06] LABS: CHLORIDE 99 MEQ/L (99-109); CREATININE 10.2 MG/DL (0.6-1.3); GFR ESTIMATE (CALCULATED) 6 mL/min/ (58.99-99999); POTASSIUM 4.6 MEQ/L (3.7-5.4); SODIUM 137 MEQ/L (136-147); UREA NITROGEN (BUN) 62 mg/dL (9-23)
[2018-02-26 11:09] LABS: GLUCOSE 30 mg/dL (70-99)
[2018-02-26 12:53] LABS: HEPATITIS B SURFACE ANTIGEN Nonreactive
[2018-02-26 15:49] LABS: VANCOMYCIN, TROUGH 9.8 MCG/ML (10-20)
[2018-02-26 17:14] LABS: ALBUMIN 2.8 G/DL (3.2-4.8); ALKALINE PHOSPHATASE 52 IU/L (3-129); ALT (GPT) 12 IU/L (3-49); AST (GOT) 22 IU/L (2-34); CHLORIDE 99 MEQ/L (99-109); GFR ESTIMATE (CALCULATED) 14 mL/min/ (58.99-99999); POTASSIUM 3.9 MEQ/L (3.7-5.4); SODIUM 136 MEQ/L (136-147); TOTAL BILIRUBIN 0.7 MG/DL (0.0-1.0); TOTAL PROTEIN 5.9 G/DL (6.4-8.3)
[2018-02-26 17:17] LABS: CREATININE 4.7 MG/DL (0.6-1.3); GLUCOSE 124 mg/dL (70-99); UREA NITROGEN (BUN) 25 mg/dL (9-23)
[2018-02-26 17:35] LABS: BASOPHIL (%) 0.5 % (0-1); BASOPHIL COUNT 0.1 K/uL (0-0.1); EOSINOPHIL (%) 3.1 % (0-5); EOSINOPHIL COUNT 0.4 K/uL (0-0.3); HEMATOCRIT 27.1 % (38.0-50.0); IMMATURE GRANULOCYTE (%) 0.4 % (0.0-0.7); LYMPHOCYTE (%) 13.1 % (15-42); LYMPHOCYTE COUNT 1.5 K/uL (1.0-2.8); MCH 29.6 PG (29.0-34.0); MCHC 32.5 G/DL (30.0-36.0); MCV 91.2 FL (86-99); MONOCYTE (%) 10.9 % (3-12); MONOCYTE COUNT 1.2 K/uL (0-0.8); PLATELET COUNT 201 K/uL (156-360); RBC DIS.WIDTH-CV 16.3 % (11.8-14.6); RBC DIS.WIDTH-SD 54.1 % (39-53); RED BLOOD COUNT 2.97 M/uL (4.00-5.50); WHITE BLOOD COUNT 11.2 K/uL (4.1-10.2)
[2018-02-26 17:51] LABS: HEMOGLOBIN 8.8 G/DL (12.5-16.6)
[2018-02-26 22:31] LABS: CHLORIDE 97 MEQ/L (99-109); CREATININE 4.9 MG/DL (0.6-1.3); GFR ESTIMATE (CALCULATED) 13 mL/min/ (58.99-99999); GLUCOSE 182 mg/dL (70-99); SODIUM 133 MEQ/L (136-147); UREA NITROGEN (BUN) 29 mg/dL (9-23)
[2018-02-27] VITALS (20 sets, daily range): BP systolic 131–194; BP diastolic 62–93
[2018-02-27 05:47] LABS: CHLORIDE 95 MEQ/L (99-109); GFR ESTIMATE (CALCULATED) 10 mL/min/ (58.99-99999); POTASSIUM 4.3 MEQ/L (3.7-5.4); SODIUM 130 MEQ/L (136-147); UREA NITROGEN (BUN) 38 mg/dL (9-23)
[2018-02-27 05:48] LABS: CREATININE 6.1 MG/DL (0.6-1.3); GLUCOSE 322 mg/dL (70-99)
[2018-02-27 10:58] LABS: CHLORIDE 94 MEQ/L (99-109); CREATININE 6.3 MG/DL (0.6-1.3); GFR ESTIMATE (CALCULATED) 10 mL/min/ (58.99-99999); GLUCOSE 338 mg/dL (70-99); POTASSIUM 4.3 MEQ/L (3.7-5.4); SODIUM 128 MEQ/L (136-147); UREA NITROGEN (BUN) 41 mg/dL (9-23)
[2018-02-27 15:59] LABS: BASOPHIL (%) 0.7 % (0-1); BASOPHIL COUNT 0.1 K/uL (0-0.1); EOSINOPHIL (%) 7.7 % (0-5); EOSINOPHIL COUNT 0.8 K/uL (0-0.3); HEMATOCRIT 27.9 % (38.0-50.0); HEMOGLOBIN 9.1 G/DL (12.5-16.6); IMMATURE GRANULOCYTE (%) 0.3 % (0.0-0.7); LYMPHOCYTE COUNT 1.5 K/uL (1.0-2.8); MCH 29.7 PG (29.0-34.0); MCHC 32.6 G/DL (30.0-36.0); MCV 91.2 FL (86-99); MONOCYTE COUNT 1.2 K/uL (0-0.8); NEUTROPHIL (%) 66.3 % (45-76); PLATELET COUNT 213 K/uL (156-360); RBC DIS.WIDTH-CV 15.5 % (11.8-14.6); RBC DIS.WIDTH-SD 52.2 % (39-53); RED BLOOD COUNT 3.06 M/uL (4.00-5.50); WHITE BLOOD COUNT 10.6 K/uL (4.1-10.2)
[2018-02-27 16:05] LABS: CHLORIDE 94 MEQ/L (99-109); CREATININE 6.6 MG/DL (0.6-1.3); GFR ESTIMATE (CALCULATED) 9 mL/min/ (58.99-99999); GLUCOSE 213 mg/dL (70-99); POTASSIUM 4.2 MEQ/L (3.7-5.4); SODIUM 129 MEQ/L (136-147); UREA NITROGEN (BUN) 43 mg/dL (9-23)
[2018-02-27 16:45] LABS: ALT (GPT) 15 IU/L (3-49); AST (GOT) 22 IU/L (2-34); CHLORIDE 94 MEQ/L (99-109); CREATININE 6.7 MG/DL (0.6-1.3); GFR ESTIMATE (CALCULATED) 9 mL/min/ (58.99-99999); GLUCOSE 210 mg/dL (70-99); POTASSIUM 4.3 MEQ/L (3.7-5.4); SODIUM 130 MEQ/L (136-147); TOTAL BILIRUBIN 0.6 MG/DL (0.0-1.0); TOTAL PROTEIN 6.1 G/DL (6.4-8.3); UREA NITROGEN (BUN) 44 mg/dL (9-23)
[2018-02-27 16:46] LABS: ALKALINE PHOSPHATASE 94 IU/L (3-129)
[2018-02-27 23:15] LABS: CHLORIDE 95 MEQ/L (99-109); CREATININE 6.9 MG/DL (0.6-1.3); GFR ESTIMATE (CALCULATED) 9 mL/min/ (58.99-99999); GLUCOSE 213 mg/dL (70-99); POTASSIUM 4.3 MEQ/L (3.7-5.4); SODIUM 130 MEQ/L (136-147); UREA NITROGEN (BUN) 47 mg/dL (9-23)
[2018-02-28] VITALS (23 sets, daily range): BP systolic 121–187; BP diastolic 56–85
[2018-02-28 13:53] LABS: BASOPHIL (%) 0.8 % (0-1); BASOPHIL COUNT 0.1 K/uL (0-0.1); EOSINOPHIL (%) 13.1 % (0-5); EOSINOPHIL COUNT 1.2 K/uL (0-0.3); HEMATOCRIT 25.9 % (38.0-50.0); HEMOGLOBIN 8.6 G/DL (12.5-16.6); IMMATURE GRANULOCYTE (%) 0.4 % (0.0-0.7); LYMPHOCYTE (%) 16.5 % (15-42); LYMPHOCYTE COUNT 1.5 K/uL (1.0-2.8); MCH 30.4 PG (29.0-34.0); MCHC 33.2 G/DL (30.0-36.0); MCV 91.5 FL (86-99); MONOCYTE (%) 9.2 % (3-12); MONOCYTE COUNT 0.9 K/uL (0-0.8); NEUTROPHIL COUNT 5.6 K/uL (1.8-6.4); PLATELET COUNT 254 K/uL (156-360); RBC DIS.WIDTH-CV 15.3 % (11.8-14.6); RBC DIS.WIDTH-SD 51.6 % (39-53); RED BLOOD COUNT 2.83 M/uL (4.00-5.50); WHITE BLOOD COUNT 9.2 K/uL (4.1-10.2)
[2018-02-28 14:27] LABS: ALBUMIN 2.9 G/DL (3.2-4.8); ALT (GPT) 16 IU/L (3-49); AST (GOT) 18 IU/L (2-34); CHLORIDE 98 MEQ/L (99-109); CREATININE 7.8 MG/DL (0.6-1.3); GFR ESTIMATE (CALCULATED) 8 mL/min/ (58.99-99999); GLUCOSE 189 mg/dL (70-99); POTASSIUM 4.1 MEQ/L (3.7-5.4); SODIUM 135 MEQ/L (136-147); TOTAL BILIRUBIN 0.5 MG/DL (0.0-1.0); TOTAL PROTEIN 6.3 G/DL (6.4-8.3); UREA NITROGEN (BUN) 54 mg/dL (9-23)
[2018-02-28 14:29] LABS: ALKALINE PHOSPHATASE 121 IU/L (3-129)
[2018-02-28 16:41] LABS: HSV-2 IgG Antibody <0.90 Index (<0.90)
[2018-03-01] VITALS (21 sets, daily range): BP systolic 123–172; BP diastolic 55–76
[2018-03-01 07:25] LABS: HEMATOCRIT 26.6 % (38.0-50.0); HEMOGLOBIN 8.7 G/DL (12.5-16.6); MCHC 32.7 G/DL (30.0-36.0); MCV 91.7 FL (86-99); PLATELET COUNT 274 K/uL (156-360); RBC DIS.WIDTH-CV 15.3 % (11.8-14.6); RBC DIS.WIDTH-SD 51.9 % (39-53); WHITE BLOOD COUNT 7.4 K/uL (4.1-10.2)
[2018-03-01 07:57] LABS: ALBUMIN 2.7 G/DL (3.2-4.8); ALKALINE PHOSPHATASE 105 IU/L (3-129); ALT (GPT) 16 IU/L (3-49); AST (GOT) 19 IU/L (2-34); CHLORIDE 99 MEQ/L (99-109); GFR ESTIMATE (CALCULATED) 11 mL/min/ (58.99-99999); GLUCOSE 206 mg/dL (70-99); POTASSIUM 4.3 MEQ/L (3.7-5.4); SODIUM 138 MEQ/L (136-147); TOTAL BILIRUBIN 0.5 MG/DL (0.0-1.0); TOTAL PROTEIN 5.8 G/DL (6.4-8.3); UREA NITROGEN (BUN) 31 mg/dL (9-23)
[2018-03-01 07:58] LABS: CREATININE 5.8 MG/DL (0.6-1.3)
[2018-03-01 13:10] LABS: Insulin Like Growth Factor-1 109 ng/mL (50-317); Z-SCORE (MALE) -0.5 SD (-2.0 - +2.0)
[2018-03-01 16:43] LABS: BASOPHIL (%) 0.8 % (0-1); BASOPHIL COUNT 0.1 K/uL (0-0.1); EOSINOPHIL (%) 15.7 % (0-5); EOSINOPHIL COUNT 1.5 K/uL (0-0.3); HEMATOCRIT 26.6 % (38.0-50.0); HEMOGLOBIN 8.6 G/DL (12.5-16.6); IMMATURE GRANULOCYTE (%) 0.4 % (0.0-0.7); LYMPHOCYTE (%) 18.8 % (15-42); LYMPHOCYTE COUNT 1.8 K/uL (1.0-2.8); MCH 30.1 PG (29.0-34.0); MCHC 32.3 G/DL (30.0-36.0); MONOCYTE (%) 10.7 % (3-12); NEUTROPHIL (%) 53.6 % (45-76); NEUTROPHIL COUNT 5.2 K/uL (1.8-6.4); PLATELET COUNT 297 K/uL (156-360); RBC DIS.WIDTH-CV 15.3 % (11.8-14.6); RBC DIS.WIDTH-SD 52.7 % (39-53); RED BLOOD COUNT 2.86 M/uL (4.00-5.50); WHITE BLOOD COUNT 9.7 K/uL (4.1-10.2)
[2018-03-01 17:18] LABS: ALBUMIN 3.1 G/DL (3.2-4.8); ALKALINE PHOSPHATASE 109 IU/L (3-129); ALT (GPT) 15 IU/L (3-49); AST (GOT) 18 IU/L (2-34); CHLORIDE 99 MEQ/L (99-109); CREATININE 6.4 MG/DL (0.6-1.3); GFR ESTIMATE (CALCULATED) 10 mL/min/ (58.99-99999); GLUCOSE 146 mg/dL (70-99); POTASSIUM 3.8 MEQ/L (3.7-5.4); SODIUM 140 MEQ/L (136-147); TOTAL BILIRUBIN 0.5 MG/DL (0.0-1.0); TOTAL PROTEIN 6.7 G/DL (6.4-8.3); UREA NITROGEN (BUN) 39 mg/dL (9-23)
[2018-03-02] VITALS (24 sets, daily range): BP systolic 124–171; BP diastolic 46–77
[2018-03-02 05:34] LABS: BASOPHIL (%) 0.6 % (0-1); BASOPHIL COUNT 0.1 K/uL (0-0.1); EOSINOPHIL (%) 17.4 % (0-5); EOSINOPHIL COUNT 1.8 K/uL (0-0.3); HEMATOCRIT 26.3 % (38.0-50.0); HEMOGLOBIN 8.4 G/DL (12.5-16.6); IMMATURE GRANULOCYTE (%) 0.5 % (0.0-0.7); LYMPHOCYTE (%) 14.7 % (15-42); LYMPHOCYTE COUNT 1.6 K/uL (1.0-2.8); MCH 29.8 PG (29.0-34.0); MCHC 31.9 G/DL (30.0-36.0); MCV 93.3 FL (86-99); MONOCYTE (%) 10.9 % (3-12); MONOCYTE COUNT 1.2 K/uL (0-0.8); NEUTROPHIL (%) 55.9 % (45-76); NEUTROPHIL COUNT 5.9 K/uL (1.8-6.4); PLATELET COUNT 289 K/uL (156-360); RBC DIS.WIDTH-CV 15.1 % (11.8-14.6); RBC DIS.WIDTH-SD 52.2 % (39-53); RED BLOOD COUNT 2.82 M/uL (4.00-5.50); WHITE BLOOD COUNT 10.6 K/uL (4.1-10.2)
[2018-03-02 06:06] LABS: ALBUMIN 2.6 G/DL (3.2-4.8); CHLORIDE 99 MEQ/L (99-109); GFR ESTIMATE (CALCULATED) 9 mL/min/ (58.99-99999); GLUCOSE 195 mg/dL (70-99); PHOSPHORUS 3.6 mg/dL (2.5-4.9); POTASSIUM 4.2 MEQ/L (3.7-5.4); SODIUM 139 MEQ/L (136-147); UREA NITROGEN (BUN) 44 mg/dL (9-23)
[2018-03-03] VITALS (24 sets, daily range): BP systolic 111–186; BP diastolic 58–108
[2018-03-03 05:43] LABS: BASOPHIL (%) 0.7 % (0-1); BASOPHIL COUNT 0.1 K/uL (0-0.1); EOSINOPHIL (%) 17.3 % (0-5); EOSINOPHIL COUNT 2.1 K/uL (0-0.3); HEMATOCRIT 26.4 % (38.0-50.0); HEMOGLOBIN 8.5 G/DL (12.5-16.6); IMMATURE GRANULOCYTE (%) 0.9 % (0.0-0.7); LYMPHOCYTE COUNT 1.5 K/uL (1.0-2.8); MCH 30.1 PG (29.0-34.0); MCHC 32.2 G/DL (30.0-36.0); MCV 93.6 FL (86-99); MONOCYTE (%) 9.7 % (3-12); MONOCYTE COUNT 1.2 K/uL (0-0.8); NEUTROPHIL (%) 59.4 % (45-76); NEUTROPHIL COUNT 7.2 K/uL (1.8-6.4); PLATELET COUNT 289 K/uL (156-360); RBC DIS.WIDTH-SD 51.5 % (39-53); RED BLOOD COUNT 2.82 M/uL (4.00-5.50)
[2018-03-03 06:34] LABS: CHLORIDE 98 MEQ/L (99-109); CREATININE 5.2 MG/DL (0.6-1.3); GFR ESTIMATE (CALCULATED) 12 mL/min/ (58.99-99999); GLUCOSE 219 mg/dL (70-99); MAGNESIUM 2.5 mg/dl (1.3-2.7); PHOSPHORUS 3.5 mg/dL (2.5-4.9); POTASSIUM 4.5 MEQ/L (3.7-5.4); SODIUM 138 MEQ/L (136-147); UREA NITROGEN (BUN) 28 mg/dL (9-23)
[2018-03-04] VITALS (24 sets, daily range): BP systolic 119–175; BP diastolic 50–97
[2018-03-04 06:14] LABS: BASOPHIL (%) 0.6 % (0-1); BASOPHIL COUNT 0.1 K/uL (0-0.1); EOSINOPHIL (%) 19.8 % (0-5); EOSINOPHIL COUNT 2.4 K/uL (0-0.3); HEMATOCRIT 27.1 % (38.0-50.0); HEMOGLOBIN 8.7 G/DL (12.5-16.6); IMMATURE GRANULOCYTE (%) 0.9 % (0.0-0.7); LYMPHOCYTE (%) 12.4 % (15-42); LYMPHOCYTE COUNT 1.5 K/uL (1.0-2.8); MCH 30.1 PG (29.0-34.0); MCHC 32.1 G/DL (30.0-36.0); MCV 93.8 FL (86-99); MONOCYTE (%) 8.9 % (3-12); MONOCYTE COUNT 1.1 K/uL (0-0.8); NEUTROPHIL (%) 57.4 % (45-76); PLATELET COUNT 345 K/uL (156-360); RBC DIS.WIDTH-CV 14.9 % (11.8-14.6); RBC DIS.WIDTH-SD 50.8 % (39-53); RED BLOOD COUNT 2.89 M/uL (4.00-5.50); WHITE BLOOD COUNT 12.2 K/uL (4.1-10.2)
[2018-03-04 06:43] LABS: CHLORIDE 97 MEQ/L (99-109); GLUCOSE 276 mg/dL (70-99); POTASSIUM 4.3 MEQ/L (3.7-5.4); SODIUM 138 MEQ/L (136-147)
[2018-03-04 06:44] LABS: CREATININE 7.9 MG/DL (0.6-1.3); GFR ESTIMATE (CALCULATED) 8 mL/min/ (58.99-99999); MAGNESIUM 2.9 mg/dl (1.3-2.7); UREA NITROGEN (BUN) 51 mg/dL (9-23)
[2018-03-04 11:29] LABS: COMMENTS - BLOOD GASES A+C+; DEVICE 840 PB; FI02 30 %; MECHANICAL RATE 16 resp/min; MODE AC; SITE LR; TOTAL RESP RATE 16 resp/min
[2018-03-04 11:30] LABS: BASE EXCESS 7.7 mEq/L (-3 to +3); BICARBONATE 30.9 mEq/L (22-26); CARBOXY HGB 1.4 % (0-5); METHEMOGLOBIN 1.3 % (0-1.5); O2 SATURATION (CALCULATED) 96.2 % (95-99); PCO2 37 mm Hg (35-45); PEEP 5 CM/H20; PO2 133 mm Hg (80-100); TIDAL VOLUME 500 ML; pH 7.53 (7.35-7.45)
[2018-03-05] VITALS (25 sets, daily range): BP systolic 92–183; BP diastolic 56–84
[2018-03-05 05:34] LABS: BASOPHIL (%) 0.6 % (0-1); BASOPHIL COUNT 0.1 K/uL (0-0.1); EOSINOPHIL (%) 18.6 % (0-5); EOSINOPHIL COUNT 2.2 K/uL (0-0.3); HEMATOCRIT 26.7 % (38.0-50.0); HEMOGLOBIN 8.8 G/DL (12.5-16.6); IMMATURE GRANULOCYTE (%) 0.7 % (0.0-0.7); LYMPHOCYTE (%) 16.5 % (15-42); LYMPHOCYTE COUNT 1.9 K/uL (1.0-2.8); MCH 30.1 PG (29.0-34.0); MCV 91.4 FL (86-99); MONOCYTE (%) 8.6 % (3-12); NEUTROPHIL COUNT 6.4 K/uL (1.8-6.4); PLATELET COUNT 405 K/uL (156-360); RBC DIS.WIDTH-CV 14.9 % (11.8-14.6); RED BLOOD COUNT 2.92 M/uL (4.00-5.50); WHITE BLOOD COUNT 11.6 K/uL (4.1-10.2)
[2018-03-05 06:03] LABS: CHLORIDE 98 MEQ/L (99-109); CREATININE 9.9 MG/DL (0.6-1.3); GFR ESTIMATE (CALCULATED) 6 mL/min/ (58.99-99999); GLUCOSE 247 mg/dL (70-99); MAGNESIUM 3.2 mg/dl (1.3-2.7); PHOSPHORUS 5.2 mg/dL (2.5-4.9); POTASSIUM 4.2 MEQ/L (3.7-5.4); SODIUM 142 MEQ/L (136-147); UREA NITROGEN (BUN) 66 mg/dL (9-23)
[2018-03-06] VITALS (19 sets, daily range): BP systolic 111–157; BP diastolic 57–86
[2018-03-06 05:21] LABS: BASOPHIL (%) 0.5 % (0-1); BASOPHIL COUNT 0.1 K/uL (0-0.1); EOSINOPHIL (%) 16.4 % (0-5); HEMATOCRIT 27.3 % (38.0-50.0); HEMOGLOBIN 8.9 G/DL (12.5-16.6); IMMATURE GRANULOCYTE (%) 0.9 % (0.0-0.7); LYMPHOCYTE (%) 20.2 % (15-42); LYMPHOCYTE COUNT 2.4 K/uL (1.0-2.8); MCH 29.6 PG (29.0-34.0); MCHC 32.6 G/DL (30.0-36.0); MCV 90.7 FL (86-99); MONOCYTE (%) 8.1 % (3-12); NEUTROPHIL (%) 53.9 % (45-76); NEUTROPHIL COUNT 6.4 K/uL (1.8-6.4); PLATELET COUNT 475 K/uL (156-360); RBC DIS.WIDTH-CV 14.8 % (11.8-14.6); RBC DIS.WIDTH-SD 49.6 % (39-53); RED BLOOD COUNT 3.01 M/uL (4.00-5.50)
[2018-03-06 05:55] LABS: CHLORIDE 98 MEQ/L (99-109); GLUCOSE 209 mg/dL (70-99); SODIUM 140 MEQ/L (136-147); UREA NITROGEN (BUN) 44 mg/dL (9-23)
[2018-03-06 06:14] LABS: CREATININE 7.2 MG/DL (0.6-1.3); GFR ESTIMATE (CALCULATED) 9 mL/min/ (58.99-99999); MAGNESIUM 2.6 mg/dl (1.3-2.7); PHOSPHORUS 2.4 mg/dL (2.5-4.9)
[2018-03-07] VITALS (23 sets, daily range): BP systolic 105–167; BP diastolic 52–81
[2018-03-07 05:28] LABS: BASOPHIL (%) 0.7 % (0-1); BASOPHIL COUNT 0.1 K/uL (0-0.1); EOSINOPHIL (%) 14.5 % (0-5); EOSINOPHIL COUNT 1.8 K/uL (0-0.3); HEMATOCRIT 28.8 % (38.0-50.0); HEMOGLOBIN 9.4 G/DL (12.5-16.6); IMMATURE GRANULOCYTE (%) 0.7 % (0.0-0.7); LYMPHOCYTE (%) 19.9 % (15-42); LYMPHOCYTE COUNT 2.4 K/uL (1.0-2.8); MCH 29.6 PG (29.0-34.0); MCHC 32.6 G/DL (30.0-36.0); MCV 90.6 FL (86-99); MONOCYTE (%) 7.1 % (3-12); MONOCYTE COUNT 0.9 K/uL (0-0.8); NEUTROPHIL (%) 57.1 % (45-76); NEUTROPHIL COUNT 6.9 K/uL (1.8-6.4); PLATELET COUNT 477 K/uL (156-360); RBC DIS.WIDTH-CV 14.7 % (11.8-14.6); RED BLOOD COUNT 3.18 M/uL (4.00-5.50); WHITE BLOOD COUNT 12.1 K/uL (4.1-10.2)
[2018-03-07 06:19] LABS: CHLORIDE 94 MEQ/L (99-109); GLUCOSE 220 mg/dL (70-99); PHOSPHORUS 2.8 mg/dL (2.5-4.9); POTASSIUM 3.8 MEQ/L (3.7-5.4); SODIUM 139 MEQ/L (136-147)
[2018-03-07 06:22] LABS: CREATININE 9.8 MG/DL (0.6-1.3); GFR ESTIMATE (CALCULATED) 6 mL/min/ (58.99-99999); UREA NITROGEN (BUN) 68 mg/dL (9-23)
[2018-03-08] VITALS (17 sets, daily range): BP systolic 123–168; BP diastolic 59–83
[2018-03-09] VITALS (20 sets, daily range): BP systolic 90–169; BP diastolic 59–87
[2018-03-09 00:20] LABS: C DIFF TOXIN NEGATIVE (NEGATIVE)
[2018-03-09 05:32] LABS: HEMATOCRIT 28.5 % (38.0-50.0); HEMOGLOBIN 9.3 G/DL (12.5-16.6); MCH 29.8 PG (29.0-34.0); MCHC 32.6 G/DL (30.0-36.0); MCV 91.3 FL (86-99); PLATELET COUNT 565 K/uL (156-360); RBC DIS.WIDTH-CV 14.6 % (11.8-14.6); RBC DIS.WIDTH-SD 49.1 % (39-53); RED BLOOD COUNT 3.12 M/uL (4.00-5.50); WHITE BLOOD COUNT 14.8 K/uL (4.1-10.2)
[2018-03-09 05:56] LABS: ALBUMIN 3.4 G/DL (3.2-4.8); CHLORIDE 99 MEQ/L (99-109); CREATININE 9.2 MG/DL (0.6-1.3); GFR ESTIMATE (CALCULATED) 6 mL/min/ (58.99-99999); GLUCOSE 144 mg/dL (70-99); POTASSIUM 3.9 MEQ/L (3.7-5.4); SODIUM 142 MEQ/L (136-147); UREA NITROGEN (BUN) 69 mg/dL (9-23)
[2018-03-09 07:17] LABS: BASOPHIL (%) 0.9 % (0-1); BASOPHIL COUNT 0.1 K/uL (0-0.1); EOSINOPHIL (%) 15.8 % (0-5); EOSINOPHIL COUNT 2.4 K/uL (0-0.3); IMMATURE GRANULOCYTE (%) 0.7 % (0.0-0.7); LYMPHOCYTE (%) 15.7 % (15-42); LYMPHOCYTE COUNT 2.4 K/uL (1.0-2.8); MONOCYTE (%) 7.9 % (3-12); MONOCYTE COUNT 1.2 K/uL (0-0.8); NEUTROPHIL COUNT 8.8 K/uL (1.8-6.4)
[2018-03-09 07:30] LABS: ALKALINE PHOSPHATASE 165 IU/L (3-129); ALT (GPT) 19 IU/L (3-49); AST (GOT) 28 IU/L (2-34); MAGNESIUM 2.9 mg/dl (1.3-2.7); TOTAL BILIRUBIN 0.4 MG/DL (0.0-1.0); TOTAL PROTEIN 7.2 G/DL (6.4-8.3)
[2018-03-10] VITALS (20 sets, daily range): BP systolic 113–158; BP diastolic 57–79
[2018-03-11] VITALS (18 sets, daily range): BP systolic 117–166; BP diastolic 58–85
[2018-03-11 06:02] LABS: COMMENTS - BLOOD GASES C+; DEVICE VENT; FI02 30 %; MECHANICAL RATE 16 resp/min; MODE AC; PCO2 33 mm Hg (35-45); PEEP 5 CM/H20; PO2 130 mm Hg (80-100); SITE LB; TIDAL VOLUME 500 ML; TOTAL RESP RATE 16 resp/min; pH 7.54 (7.35-7.45)
[2018-03-11 06:03] LABS: BASE EXCESS 5.5 mEq/L (-3 to +3); BICARBONATE 28.2 mEq/L (22-26); CARBOXY HGB 1.6 % (0-5); METHEMOGLOBIN 0.7 % (0-1.5)
[2018-03-12] VITALS (17 sets, daily range): BP systolic 113–1303; BP diastolic 57–79
[2018-03-12 10:26] LABS: BASOPHIL COUNT 0.1 K/uL (0-0.1); EOSINOPHIL (%) 17.9 % (0-5); EOSINOPHIL COUNT 2.2 K/uL (0-0.3); HEMOGLOBIN 9.1 G/DL (12.5-16.6); IMMATURE GRANULOCYTE (%) 0.5 % (0.0-0.7); LYMPHOCYTE (%) 15.3 % (15-42); LYMPHOCYTE COUNT 1.9 K/uL (1.0-2.8); MCH 30.3 PG (29.0-34.0); MCHC 33.7 G/DL (30.0-36.0); MONOCYTE (%) 8.4 % (3-12); NEUTROPHIL (%) 56.9 % (45-76); PLATELET COUNT 534 K/uL (156-360); RBC DIS.WIDTH-CV 14.8 % (11.8-14.6); RBC DIS.WIDTH-SD 48.4 % (39-53); WHITE BLOOD COUNT 12.3 K/uL (4.1-10.2)
[2018-03-12 10:55] LABS: ALBUMIN 3.3 G/DL (3.2-4.8); CHLORIDE 96 MEQ/L (99-109); GLUCOSE 209 mg/dL (70-99); POTASSIUM 4.1 MEQ/L (3.7-5.4); SODIUM 139 MEQ/L (136-147)
[2018-03-12 10:59] LABS: CREATININE 11.9 MG/DL (0.6-1.3); GFR ESTIMATE (CALCULATED) 5 mL/min/ (58.99-99999); PHOSPHORUS 8.1 mg/dL (2.5-4.9)
[2018-03-12 11:03] LABS: UREA NITROGEN (BUN) 108 mg/dL (9-23)
[2018-03-13] VITALS (15 sets, daily range): BP systolic 133–163; BP diastolic 64–86
[2018-03-14] VITALS (10 sets, daily range): BP systolic 124–165; BP diastolic 64–78
[2018-03-14 05:35] LABS: ALBUMIN 3.2 G/DL (3.2-4.8); CHLORIDE 95 MEQ/L (99-109); GFR ESTIMATE (CALCULATED) 6 mL/min/ (58.99-99999); GLUCOSE 170 mg/dL (70-99); PHOSPHORUS 6.6 mg/dL (2.5-4.9); POTASSIUM 4.5 MEQ/L (3.7-5.4); SODIUM 138 MEQ/L (136-147); UREA NITROGEN (BUN) 83 mg/dL (9-23)
[2018-03-14 05:37] LABS: CREATININE 9.8 MG/DL (0.6-1.3)
[2018-03-15] VITALS (15 sets, daily range): BP systolic 73–152; BP diastolic 39–82
[2018-03-15 05:25] LABS: BASOPHIL (%) 0.9 % (0-1); BASOPHIL COUNT 0.1 K/uL (0-0.1); EOSINOPHIL (%) 17.1 % (0-5); EOSINOPHIL COUNT 2.2 K/uL (0-0.3); HEMATOCRIT 25.7 % (38.0-50.0); HEMOGLOBIN 8.6 G/DL (12.5-16.6); IMMATURE GRANULOCYTE (%) 0.5 % (0.0-0.7); LYMPHOCYTE (%) 18.4 % (15-42); LYMPHOCYTE COUNT 2.4 K/uL (1.0-2.8); MCHC 33.5 G/DL (30.0-36.0); MCV 89.5 FL (86-99); MONOCYTE (%) 9.1 % (3-12); MONOCYTE COUNT 1.2 K/uL (0-0.8); PLATELET COUNT 488 K/uL (156-360); RBC DIS.WIDTH-CV 14.5 % (11.8-14.6); RBC DIS.WIDTH-SD 47.1 % (39-53); RED BLOOD COUNT 2.87 M/uL (4.00-5.50); WHITE BLOOD COUNT 12.9 K/uL (4.1-10.2)
[2018-03-15 06:00] LABS: ALBUMIN 3.2 G/DL (3.2-4.8); CHLORIDE 94 MEQ/L (99-109); CREATININE 11.3 MG/DL (0.6-1.3); GFR ESTIMATE (CALCULATED) 5 mL/min/ (58.99-99999); GLUCOSE 189 mg/dL (70-99); PHOSPHORUS 7.4 mg/dL (2.5-4.9); POTASSIUM 4.8 MEQ/L (3.7-5.4); SODIUM 138 MEQ/L (136-147)
[2018-03-15 06:13] LABS: UREA NITROGEN (BUN) 113 mg/dL (9-23)
[2018-03-15 13:56] LABS: BASOPHIL (%) 0.7 % (0-1); BASOPHIL COUNT 0.1 K/uL (0-0.1); EOSINOPHIL (%) 18.4 % (0-5); EOSINOPHIL COUNT 2.5 K/uL (0-0.3); HEMATOCRIT 25.2 % (38.0-50.0); HEMOGLOBIN 8.3 G/DL (12.5-16.6); IMMATURE GRANULOCYTE (%) 0.4 % (0.0-0.7); LYMPHOCYTE (%) 18.8 % (15-42); LYMPHOCYTE COUNT 2.6 K/uL (1.0-2.8); MCH 29.7 PG (29.0-34.0); MCHC 32.9 G/DL (30.0-36.0); MCV 90.3 FL (86-99); MONOCYTE (%) 8.7 % (3-12); MONOCYTE COUNT 1.2 K/uL (0-0.8); NEUTROPHIL COUNT 7.2 K/uL (1.8-6.4); PLATELET COUNT 504 K/uL (156-360); RBC DIS.WIDTH-CV 14.5 % (11.8-14.6); RBC DIS.WIDTH-SD 47.6 % (39-53); RED BLOOD COUNT 2.79 M/uL (4.00-5.50); WHITE BLOOD COUNT 13.6 K/uL (4.1-10.2)
[2018-03-15 14:29] LABS: ALBUMIN 3.2 G/DL (3.2-4.8); CHLORIDE 95 MEQ/L (99-109); CREATININE 11.6 MG/DL (0.6-1.3); GFR ESTIMATE (CALCULATED) 5 mL/min/ (58.99-99999); GLUCOSE 183 mg/dL (70-99); PHOSPHORUS 8.5 mg/dL (2.5-4.9); POTASSIUM 4.4 MEQ/L (3.7-5.4); SODIUM 138 MEQ/L (136-147)
[2018-03-15 14:30] LABS: UREA NITROGEN (BUN) 126 mg/dL (9-23)
[2018-03-16] VITALS (16 sets, daily range): BP systolic 103–156; BP diastolic 51–78
[2018-03-16 15:49] LABS: CHLORIDE 96 MEQ/L (99-109); GFR ESTIMATE (CALCULATED) 9 mL/min/ (58.99-99999); GLUCOSE 189 mg/dL (70-99); PHOSPHORUS 5.5 mg/dL (2.5-4.9); POTASSIUM 4.3 MEQ/L (3.7-5.4); SODIUM 138 MEQ/L (136-147); UREA NITROGEN (BUN) 66 mg/dL (9-23)
[2018-03-17] VITALS (19 sets, daily range): BP systolic 122–160; BP diastolic 58–77
[2018-03-18] VITALS (24 sets, daily range): BP systolic 94–155; BP diastolic 51–86
[2018-03-18 05:37] LABS: BASOPHIL (%) 0.4 % (0-1); BASOPHIL COUNT 0.1 K/uL (0-0.1); EOSINOPHIL (%) 12.4 % (0-5); HEMATOCRIT 18.7 % (38.0-50.0); IMMATURE GRANULOCYTE (%) 0.4 % (0.0-0.7); LYMPHOCYTE (%) 12.6 % (15-42); MCHC 33.2 G/DL (30.0-36.0); MCV 90.3 FL (86-99); MONOCYTE (%) 7.5 % (3-12); MONOCYTE COUNT 1.2 K/uL (0-0.8); NEUTROPHIL (%) 66.7 % (45-76); NEUTROPHIL COUNT 10.6 K/uL (1.8-6.4); PLATELET COUNT 400 K/uL (156-360); RBC DIS.WIDTH-CV 14.1 % (11.8-14.6); RBC DIS.WIDTH-SD 46.6 % (39-53); WHITE BLOOD COUNT 15.8 K/uL (4.1-10.2)
[2018-03-18 05:41] LABS: HEMOGLOBIN 6.2 G/DL (12.5-16.6); RED BLOOD COUNT 2.07 M/uL (4.00-5.50)
[2018-03-18 06:14] LABS: ALBUMIN 2.9 G/DL (3.2-4.8); CHLORIDE 96 MEQ/L (99-109); GLUCOSE 167 mg/dL (70-99); SODIUM 139 MEQ/L (136-147)
[2018-03-18 06:19] LABS: CREATININE 10.6 MG/DL (0.6-1.3); GFR ESTIMATE (CALCULATED) 5 mL/min/ (58.99-99999); PHOSPHORUS 8.4 mg/dL (2.5-4.9); UREA NITROGEN (BUN) 111 mg/dL (9-23)
[2018-03-19] VITALS (14 sets, daily range): BP systolic 135–168; BP diastolic 61–77
[2018-03-19 05:41] LABS: HEMATOCRIT 25.8 % (38.0-50.0); MCH 29.7 PG (29.0-34.0); MCHC 33.7 G/DL (30.0-36.0); MCV 88.1 FL (86-99); PLATELET COUNT 422 K/uL (156-360); RBC DIS.WIDTH-CV 14.2 % (11.8-14.6); RBC DIS.WIDTH-SD 45.8 % (39-53); WHITE BLOOD COUNT 12.8 K/uL (4.1-10.2)
[2018-03-19 05:47] LABS: HEMOGLOBIN 8.7 G/DL (12.5-16.6); RED BLOOD COUNT 2.93 M/uL (4.00-5.50)
[2018-03-19 05:56] LABS: INTER. NORMALIZED RATIO 1.2
[2018-03-19 06:01] LABS: PTT 29.3 SEC (25-37)
[2018-03-20] VITALS (25 sets, daily range): BP systolic 102–183; BP diastolic 54–90
[2018-03-20 05:24] LABS: BASOPHIL (%) 0.7 % (0-1); BASOPHIL COUNT 0.1 K/uL (0-0.1); EOSINOPHIL (%) 12.5 % (0-5); EOSINOPHIL COUNT 1.8 K/uL (0-0.3); HEMATOCRIT 25.3 % (38.0-50.0); HEMOGLOBIN 8.5 G/DL (12.5-16.6); IMMATURE GRANULOCYTE (%) 0.3 % (0.0-0.7); LYMPHOCYTE (%) 16.2 % (15-42); LYMPHOCYTE COUNT 2.3 K/uL (1.0-2.8); MCH 29.6 PG (29.0-34.0); MCHC 33.6 G/DL (30.0-36.0); MCV 88.2 FL (86-99); MONOCYTE (%) 8.3 % (3-12); MONOCYTE COUNT 1.2 K/uL (0-0.8); NEUTROPHIL COUNT 8.9 K/uL (1.8-6.4); PLATELET COUNT 434 K/uL (156-360); RBC DIS.WIDTH-CV 14.1 % (11.8-14.6); RBC DIS.WIDTH-SD 45.1 % (39-53); RED BLOOD COUNT 2.87 M/uL (4.00-5.50); WHITE BLOOD COUNT 14.4 K/uL (4.1-10.2)
[2018-03-20 05:57] LABS: ALBUMIN 3.1 G/DL (3.2-4.8); CHLORIDE 94 MEQ/L (99-109); GFR ESTIMATE (CALCULATED) 7 mL/min/ (58.99-99999); GLUCOSE 237 mg/dL (70-99); PHOSPHORUS 6.6 mg/dL (2.5-4.9); POTASSIUM 4.2 MEQ/L (3.7-5.4); SODIUM 138 MEQ/L (136-147); UREA NITROGEN (BUN) 89 mg/dL (9-23)
[2018-03-20 06:12] LABS: CREATININE 8.6 MG/DL (0.6-1.3)
[2018-03-21] VITALS (16 sets, daily range): BP systolic 112–171; BP diastolic 44–87
[2018-03-21 04:49] LABS: BASOPHIL (%) 0.9 % (0-1); BASOPHIL COUNT 0.1 K/uL (0-0.1); EOSINOPHIL (%) 13.4 % (0-5); EOSINOPHIL COUNT 1.7 K/uL (0-0.3); HEMATOCRIT 26.6 % (38.0-50.0); HEMOGLOBIN 9.1 G/DL (12.5-16.6); IMMATURE GRANULOCYTE (%) 0.4 % (0.0-0.7); LYMPHOCYTE (%) 17.9 % (15-42); LYMPHOCYTE COUNT 2.2 K/uL (1.0-2.8); MCH 30.7 PG (29.0-34.0); MCHC 34.2 G/DL (30.0-36.0); MCV 89.9 FL (86-99); MONOCYTE (%) 11.2 % (3-12); MONOCYTE COUNT 1.4 K/uL (0-0.8); NEUTROPHIL (%) 56.2 % (45-76); PLATELET COUNT 448 K/uL (156-360); RBC DIS.WIDTH-CV 13.8 % (11.8-14.6); RBC DIS.WIDTH-SD 45.3 % (39-53); RED BLOOD COUNT 2.96 M/uL (4.00-5.50); WHITE BLOOD COUNT 12.4 K/uL (4.1-10.2)
[2018-03-21 05:11] LABS: CHLORIDE 99 mEq/L (99-109); POTASSIUM 4.4 mEq/L (3.7-5.4); SODIUM 141 mEq/L (136-147)
[2018-03-21 05:14] LABS: GLUCOSE 112 mg/dL (70-99)
[2018-03-21 05:17] LABS: CREATININE 5.8 mg/dL (0.6-1.3); GFR ESTIMATE (CALCULATED) 11 mL/min/ (58.99-99999)
[2018-03-21 05:18] LABS: UREA NITROGEN (BUN) 52 mg/dL (9-23)
[2018-03-22] VITALS (23 sets, daily range): BP systolic 96–147; BP diastolic 54–77
[2018-03-22 06:14] LABS: BASOPHIL (%) 0.9 % (0-1); BASOPHIL COUNT 0.1 K/uL (0-0.1); EOSINOPHIL (%) 14.6 % (0-5); EOSINOPHIL COUNT 1.8 K/uL (0-0.3); HEMATOCRIT 26.8 % (38.0-50.0); HEMOGLOBIN 8.7 G/DL (12.5-16.6); IMMATURE GRANULOCYTE (%) 0.4 % (0.0-0.7); LYMPHOCYTE (%) 19.6 % (15-42); LYMPHOCYTE COUNT 2.4 K/uL (1.0-2.8); MCH 29.3 PG (29.0-34.0); MCHC 32.5 G/DL (30.0-36.0); MCV 90.2 FL (86-99); MONOCYTE (%) 9.9 % (3-12); MONOCYTE COUNT 1.2 K/uL (0-0.8); NEUTROPHIL (%) 54.6 % (45-76); NEUTROPHIL COUNT 6.6 K/uL (1.8-6.4); PLATELET COUNT 502 K/uL (156-360); RBC DIS.WIDTH-CV 13.8 % (11.8-14.6); RBC DIS.WIDTH-SD 45.6 % (39-53); RED BLOOD COUNT 2.97 M/uL (4.00-5.50); WHITE BLOOD COUNT 12.1 K/uL (4.1-10.2)
[2018-03-22 06:43] LABS: ALBUMIN 3.2 G/DL (3.2-4.8); CHLORIDE 96 MEQ/L (99-109); GFR ESTIMATE (CALCULATED) 7 mL/min/ (58.99-99999); GLUCOSE 139 mg/dL (70-99); POTASSIUM 5.1 MEQ/L (3.7-5.4); SODIUM 140 MEQ/L (136-147)
[2018-03-22 06:45] LABS: CREATININE 8.2 MG/DL (0.6-1.3); UREA NITROGEN (BUN) 87 mg/dL (9-23)
[2018-03-23] VITALS (23 sets, daily range): BP systolic 92–149; BP diastolic 44–75
[2018-03-24] VITALS (23 sets, daily range): BP systolic 102–140; BP diastolic 48–70
[2018-03-25] VITALS (14 sets, daily range): BP systolic 109–135; BP diastolic 53–66
[2018-03-25 06:15] LABS: BASOPHIL (%) 0.6 % (0-1); BASOPHIL COUNT 0.1 K/uL (0-0.1); EOSINOPHIL (%) 15.6 % (0-5); HEMATOCRIT 26.9 % (38.0-50.0); HEMOGLOBIN 8.8 G/DL (12.5-16.6); IMMATURE GRANULOCYTE (%) 0.6 % (0.0-0.7); LYMPHOCYTE (%) 20.4 % (15-42); LYMPHOCYTE COUNT 2.6 K/uL (1.0-2.8); MCH 29.2 PG (29.0-34.0); MCHC 32.7 G/DL (30.0-36.0); MCV 89.4 FL (86-99); MONOCYTE (%) 9.2 % (3-12); MONOCYTE COUNT 1.2 K/uL (0-0.8); NEUTROPHIL (%) 53.6 % (45-76); NEUTROPHIL COUNT 6.8 K/uL (1.8-6.4); PLATELET COUNT 492 K/uL (156-360); RBC DIS.WIDTH-CV 13.5 % (11.8-14.6); RBC DIS.WIDTH-SD 43.9 % (39-53); RED BLOOD COUNT 3.01 M/uL (4.00-5.50); WHITE BLOOD COUNT 12.7 K/uL (4.1-10.2)
[2018-03-25 06:55] LABS: ALBUMIN 3.1 G/DL (3.2-4.8); CHLORIDE 91 MEQ/L (99-109); GFR ESTIMATE (CALCULATED) 6 mL/min/ (58.99-99999); GLUCOSE 110 mg/dL (70-99); PHOSPHORUS 8.5 mg/dL (2.5-4.9); POTASSIUM 4.7 MEQ/L (3.7-5.4); SODIUM 138 MEQ/L (136-147)
[2018-03-25 07:06] LABS: CREATININE 10.4 MG/DL (0.6-1.3); UREA NITROGEN (BUN) 118 mg/dL (9-23)
[2018-03-26] VITALS (23 sets, daily range): BP systolic 84–148; BP diastolic 48–98
[2018-03-27] VITALS (22 sets, daily range): BP systolic 83–163; BP diastolic 52–71
[2018-03-27 05:19] LABS: BASOPHIL (%) 0.5 % (0-1); BASOPHIL COUNT 0.1 K/uL (0-0.1); EOSINOPHIL (%) 11.3 % (0-5); EOSINOPHIL COUNT 2.1 K/uL (0-0.3); HEMATOCRIT 29.2 % (38.0-50.0); HEMOGLOBIN 9.4 G/DL (12.5-16.6); IMMATURE GRANULOCYTE (%) 0.5 % (0.0-0.7); LYMPHOCYTE (%) 12.4 % (15-42); LYMPHOCYTE COUNT 2.3 K/uL (1.0-2.8); MCH 29.2 PG (29.0-34.0); MCHC 32.2 G/DL (30.0-36.0); MCV 90.7 FL (86-99); MONOCYTE (%) 7.5 % (3-12); MONOCYTE COUNT 1.4 K/uL (0-0.8); NEUTROPHIL (%) 67.8 % (45-76); NEUTROPHIL COUNT 12.7 K/uL (1.8-6.4); PLATELET COUNT 529 K/uL (156-360); RBC DIS.WIDTH-CV 13.4 % (11.8-14.6); RBC DIS.WIDTH-SD 44.8 % (39-53); RED BLOOD COUNT 3.22 M/uL (4.00-5.50); WHITE BLOOD COUNT 18.7 K/uL (4.1-10.2)
[2018-03-27 05:59] LABS: ALBUMIN 3.4 G/DL (3.2-4.8); CHLORIDE 97 MEQ/L (99-109); CREATININE 9.3 MG/DL (0.6-1.3); GFR ESTIMATE (CALCULATED) 6 mL/min/ (58.99-99999); GLUCOSE 112 mg/dL (70-99); PHOSPHORUS 6.2 mg/dL (2.5-4.9); POTASSIUM 4.2 MEQ/L (3.7-5.4); SODIUM 142 MEQ/L (136-147); UREA NITROGEN (BUN) 99 mg/dL (9-23)
[2018-03-28] VITALS (24 sets, daily range): BP systolic 75–174; BP diastolic 43–74
[2018-03-28 00:20] LABS: COMMENTS - BLOOD GASES C+; DEVICE VENT; FI02 30 %; MECHANICAL RATE 16 resp/min; MODE AC; PCO2 41 mm Hg (35-45); PEEP 5 CM/H20; PO2 103 mm Hg (80-100); SITE LB; TIDAL VOLUME 500 ML; TOTAL RESP RATE 16 resp/min; pH 7.41 (7.35-7.45)
[2018-03-28 00:21] LABS: BASE EXCESS 1.2 mEq/L (-3 to +3); BICARBONATE 26 mEq/L (22-26); CARBOXY HGB 1.7 % (0-5); METHEMOGLOBIN 1.2 % (0-1.5)
[2018-03-28 08:56] LABS: HEMATOCRIT 24.8 % (38.0-50.0); HEMOGLOBIN 8.2 G/DL (12.5-16.6); MCH 29.8 PG (29.0-34.0); MCHC 33.1 G/DL (30.0-36.0); MCV 90.2 FL (86-99); PLATELET COUNT 477 K/uL (156-360); RBC DIS.WIDTH-CV 13.9 % (11.8-14.6); RBC DIS.WIDTH-SD 45.4 % (39-53); RED BLOOD COUNT 2.75 M/uL (4.00-5.50); WHITE BLOOD COUNT 19.2 K/uL (4.1-10.2)
[2018-03-28 09:30] LABS: CHLORIDE 95 MEQ/L (99-109); POTASSIUM 4.1 MEQ/L (3.7-5.4); SODIUM 139 MEQ/L (136-147)
[2018-03-28 10:32] LABS: ALBUMIN 3.3 G/DL (3.2-4.8); GFR ESTIMATE (CALCULATED) 5 mL/min/ (58.99-99999); PHOSPHORUS 7.9 mg/dL (2.5-4.9)
[2018-03-28 10:35] LABS: CREATININE 12.4 MG/DL (0.6-1.3); GLUCOSE 265 mg/dL (70-99); UREA NITROGEN (BUN) 130 mg/dL (9-23)
[2018-03-28 10:50] LABS: HEPATITIS B SURFACE ANTIGEN Nonreactive
[2018-03-29] VITALS (24 sets, daily range): BP systolic 90–158; BP diastolic 46–76
[2018-03-30] VITALS (22 sets, daily range): BP systolic 69–171; BP diastolic 38–96
[2018-03-30 08:33] LABS: HEMATOCRIT 25.9 % (38.0-50.0); HEMOGLOBIN 8.4 G/DL (12.5-16.6); MCH 29.5 PG (29.0-34.0); MCHC 32.4 G/DL (30.0-36.0); MCV 90.9 FL (86-99); PLATELET COUNT 516 K/uL (156-360); RBC DIS.WIDTH-SD 46.2 % (39-53); RED BLOOD COUNT 2.85 M/uL (4.00-5.50)
[2018-03-30 08:53] LABS: ALBUMIN 3.8 G/DL (3.2-4.8); CHLORIDE 95 MEQ/L (99-109); GLUCOSE 274 mg/dL (70-99); POTASSIUM 3.8 MEQ/L (3.7-5.4); SODIUM 139 MEQ/L (136-147); UREA NITROGEN (BUN) 98 mg/dL (9-23)
[2018-03-30 08:55] LABS: CREATININE 9.7 MG/DL (0.6-1.3); GFR ESTIMATE (CALCULATED) 6 mL/min/ (58.99-99999)
[2018-03-31] VITALS (19 sets, daily range): BP systolic 89–154; BP diastolic 46–90
[2018-03-31 13:03] LABS: COMMENTS - BLOOD GASES NAC+; DEVICE VENT; FI02 30 %; MODE TUBE COMPENSATION; SITE RR
[2018-03-31 13:04] LABS: BASE EXCESS 5.2 mEq/L (-3 to +3); BICARBONATE 30.4 mEq/L (22-26); CARBOXY HGB 1.5 % (0-5); METHEMOGLOBIN 0.8 % (0-1.5); PCO2 48 mm Hg (35-45); PO2 122 mm Hg (80-100); TOTAL RESP RATE 21 resp/min; pH 7.41 (7.35-7.45)
[2018-03-31 13:05] LABS: CONTINUOUS POS AIRWAY PRESSURE 5 cm H2O
[2018-04-01] VITALS (24 sets, daily range): BP systolic 97–137; BP diastolic 45–72
[2018-04-02] VITALS (24 sets, daily range): BP systolic 99–122; BP diastolic 52–66
[2018-04-02 13:49] LABS: BASOPHIL (%) 0.8 % (0-1); BASOPHIL COUNT 0.1 K/uL (0-0.1); EOSINOPHIL (%) 8.6 % (0-5); HEMOGLOBIN 9.7 G/DL (12.5-16.6); IMMATURE GRANULOCYTE (%) 3.4 % (0.0-0.7); LYMPHOCYTE (%) 18.3 % (15-42); MCH 29.4 PG (29.0-34.0); MCHC 32.3 G/DL (30.0-36.0); MCV 90.9 FL (86-99); MONOCYTE (%) 6.3 % (3-12); MONOCYTE COUNT 0.7 K/uL (0-0.8); NEUTROPHIL (%) 62.6 % (45-76); NRBC (%) 0.3 /100 WBC (0-0); PLATELET COUNT 589 K/uL (156-360); RBC DIS.WIDTH-CV 13.5 % (11.8-14.6); RBC DIS.WIDTH-SD 44.7 % (39-53); WHITE BLOOD COUNT 11.1 K/uL (4.1-10.2)
[2018-04-02 14:04] LABS: ALBUMIN 3.3 G/DL (3.2-4.8); CHLORIDE 89 MEQ/L (99-109); POTASSIUM 4.3 MEQ/L (3.7-5.4); SODIUM 133 MEQ/L (136-147)
[2018-04-02 14:22] LABS: CREATININE 9.2 MG/DL (0.6-1.3); GFR ESTIMATE (CALCULATED) 6 mL/min/ (58.99-99999); GLUCOSE 279 mg/dL (70-99); PHOSPHORUS 5.5 mg/dL (2.5-4.9); UREA NITROGEN (BUN) 112 mg/dL (9-23)
[2018-04-03] VITALS (24 sets, daily range): BP systolic 86–141; BP diastolic 46–64
[2018-04-03 05:41] LABS: HEMATOCRIT 27.7 % (38.0-50.0); HEMOGLOBIN 9.1 G/DL (12.5-16.6); MCH 30.1 PG (29.0-34.0); MCHC 32.9 G/DL (30.0-36.0); MCV 91.7 FL (86-99); NRBC (%) 0.2 /100 WBC (0-0); PLATELET COUNT 537 K/uL (156-360); RBC DIS.WIDTH-CV 13.6 % (11.8-14.6); RBC DIS.WIDTH-SD 44.8 % (39-53); RED BLOOD COUNT 3.02 M/uL (4.00-5.50); WHITE BLOOD COUNT 12.4 K/uL (4.1-10.2)
[2018-04-03 06:22] LABS: CHLORIDE 90 MEQ/L (99-109); CREATININE 8.3 MG/DL (0.6-1.3); GFR ESTIMATE (CALCULATED) 7 mL/min/ (58.99-99999); GLUCOSE 293 mg/dL (70-99); POTASSIUM 4.6 MEQ/L (3.7-5.4); SODIUM 131 MEQ/L (136-147); UREA NITROGEN (BUN) 96 mg/dL (9-23)
[2018-04-03 07:30] LABS: ABS NEUTROPHIL COUNT 9.3; ANISOCYTOSIS NONE SEEN; BAND NEUTROPHILS 3.8 % (0-8.0); EOSINOPHIL ABS CT 0.8; EOSINOPHILS 6.7 % (0-5.0); LYMPHOCYTES 9.5 % (15.0-45.0); MACROCYTES 1+; MONOCYTES 4.8 % (0-9.0); MYELOCYTES 3.8 %; PLAT.SUFFICIENCY INCREASED; POIKILOCYTOSIS 1+; POLYCHROMASIA 1+; SEG.NEUTROPHILS 71.4 % (46.0-76.0)
[2018-04-04] VITALS (24 sets, daily range): BP systolic 82–206; BP diastolic 46–92
[2018-04-05] VITALS (16 sets, daily range): BP systolic 110–223; BP diastolic 53–133
[2018-04-06] VITALS: BP 157/70
[2018-04-06 02:00] VITALS: BP 167/73
[2018-04-06 04:00] VITALS: BP 105/75
[2018-04-06 06:00] VITALS: BP 164/68
== END 2018-04-06 14:31 | disposition hospice, home (50) | DRG 207 ==
LOC: EME 12:04 → EDOF 16:18 → 4WEST 16:18 → ENRESERV 16:19 → 4WEST 17:22 → ENRESERV 04-06 08:33 → CANRESERV 04-06 09:20 → 4WEST 04-06 14:31
PROVIDERS: Emergency Medicine; Internal Medicine; Internal Medicine Critical Care Medicine; Internal Medicine Nephrology; Obstetrics & Gynecology; Specialist; Surgery
PROC: 0BH18EZ Insertion of Endotracheal Airway into Trachea, Via Natural or Artificial Opening Endoscopic (ICD-10-PCS; principal; 2018-02-25)
PROC: 5A1955Z Respiratory Ventilation, Greater than 96 Consecutive Hours (ICD-10-PCS; principal; 2018-02-25)
PROC: 5A1D70Z Performance of Urinary Filtration, Intermittent, Less than 6 Hours Per Day (ICD-10-PCS; 2018-02-26)
PROC: 0BJ08ZZ Inspection of Tracheobronchial Tree, Via Natural or Artificial Opening Endoscopic (ICD-10-PCS; 2018-03-02)
PROC: 30233N1 Transfusion of Nonautologous Red Blood Cells into Peripheral Vein, Percutaneous Approach (ICD-10-PCS; 2018-03-18)
DX: J96.00 Acute respiratory failure, unspecified whether with hypoxia or hypercapnia (principal); J69.0 Pneumonitis due to inhalation of food and vomit; J15.8 Pneumonia due to other specified bacteria; E11.641 Type 2 diabetes mellitus with hypoglycemia with coma; G93.1 Anoxic brain damage, not elsewhere classified; I12.0 Hypertensive chronic kidney disease with stage 5 chronic kidney disease or end stage renal disease; N18.6 End stage renal disease; N25.81 Secondary hyperparathyroidism of renal origin; E11.22 Type 2 diabetes mellitus with diabetic chronic kidney disease; E11.319 Type 2 diabetes mellitus with unspecified diabetic retinopathy without macular edema; E11.42 Type 2 diabetes mellitus with diabetic polyneuropathy; E11.21 Type 2 diabetes mellitus with diabetic nephropathy; J15.1 Pneumonia due to Pseudomonas; Y95 Nosocomial condition; I95.3 Hypotension of hemodialysis; E11.65 Type 2 diabetes mellitus with hyperglycemia; E83.39 Other disorders of phosphorus metabolism; R04.2 Hemoptysis; S40.021A Contusion of right upper arm, initial encounter; I45.10 Unspecified right bundle-branch block; D63.1 Anemia in chronic kidney disease; G40.909 Epilepsy, unspecified, not intractable, without status epilepticus; E03.9 Hypothyroidism, unspecified; F41.9 Anxiety disorder, unspecified; Z51.5 Encounter for palliative care; Z66 Do not resuscitate; Z79.84 Long term (current) use of oral hypoglycemic drugs; Z99.2 Dependence on renal dialysis; Z75.1 Person awaiting admission to adequate facility elsewhere
CPT/HCPCS: 36600; 70450; 71045; 71250; 72125; 80048; 80048 91; 80053; 80069; 80202; 81003; 82010; 82140; 82550; 82803; 82948; 83525; 83605; 83735; 84100; 84145 90; 84146; 84305 90; 84443; 84484; 84681; 85025; 85025 91; 85027; 85610; 85730; 86141; 86695 90; 86696 90; 86850; 86900; 86901; 86920; 87040; 87070; 87076; 87077; 87186; 87205; 87340; 87493; 87641; 93005; 93970; 94002; 94003; 94640; 94640 76; 94760; 94799; 95819; 99202; 99281; 99285; A6214; J0360; J0692; J0881; J1270; J1644; J1756; J1815; J1953; J2543; J2704; J3370; J7030; J7050; P9016; P9047; S0028